=== PATIENT | female | born 1950 | race African-American/Black ===

== ENCOUNTER 2024-04-17 18:24 | Inpatient (IN) | payer OTHER ==
[~2024-04-17] VITALS: Ht 157.5 cm; Wt 86.4 kg
--- NOTE | 2024-04-17 18:41 | ED.PDOC ---
Altered Mental Status HPI Comments A 74 year old female brought in by EMS presents to the ED with a chief complaint of ALOC onset 4 days. Per EMS, patient has been experiencing urinary symptoms including foul odor and low production for the past 4 days. EMS states patient is usually ANO x4 and is currently ANO x1. Patient is not able to describe her symptoms only states she is "not feeling well." She has a past medical history of HTN, HLD and Afib. No other symptoms or modifying factors present at this time. Time Seen by MD: 18:33 Reviewed Notes: Medications, Allergies Allergies: Coded Allergies: NO KNOWN ALLERGIES (Unverified , 04/17/24) Information Source: Emergency Med Personnel Mode of Arrival: EMS Severity: Moderate Timing: Days Duration: Since onset Prehospital treatment: Other (500 mL fluids ) Quality: Decreased Alertness, Change in Behavior, Confusion Recent: Urinary Symptoms History of: None Associated Signs and Symptoms: None Vital Signs Vital Signs Date Time Temp Pulse Resp B/P (MAP) Pulse Ox O2 Delivery O2 Flow Rate FiO2 04/17/24 22:44 128 04/17/24 22:30 98.1 17 138/78 (98) 96 98.1 04/17/24 22:30 Room Air* 0 21 Past Medical History PAST MEDICAL HISTORY: AFIB, High Lipids, HTN Surgical History (Other): Kidney and liver transplant [employer] History: Denies all [employer] Hx Family History Family History: Unknown Social History Smoker: Non-Smoker Alcohol: Denies ETOH Use Drugs: Denies Drug Use Lives In: Home EKG EKG : Pulse Rate (adult): 158 Comments Ectopic atrial tachycardia, unifocal 125 bpm. Long R-R with ventricular escape. Repol abnrm, prob ischemia, inferolateral lds Was a procedure done? Was a procedure done?: No Differential Diagnosis (ALOC) Differential Diagnosis: Other X-Ray, Labs, Meds, VS Vital Signs Date Time Temp Pulse Resp B/P (MAP) Pulse Ox O2 Delivery O2 Flow Rate FiO2 04/17/24 22:44 128 04/17/24 22:30 98.1 128 17 138/78 (98) 96 98.1 04/17/24 22:30 128 18 95 Room Air* 0 21 04/17/24 21:33 125 04/17/24 19:12 99.6 124 20 129/80 (96) 98 04/17/24 18:46 158 12/4/24 18:40 125 Lab Test 04/17/24 19:15 Range/Units White Blood Count 6.9 4.4-10.8 10^3/uL Red Blood Count 3.94 L 4.0-5.20 10^6/uL Hemoglobin 10.4 L 12.2-16.2 g/dL Hematocrit 32.8 L 36.0-46.0 % Mean Corpuscular Volume 83.1 80.0-100.0 fL Mean Corpuscular Hemoglobin 26.4 L 28.0-32.0 pg Mean Corpuscular Hemoglobin Concent 31.7 L 32.0-36.0 g/dL Red Cell Distribution Width 20.2 H 11.8-14.3 % Platelet Count 132 L 140-450 10^3/uL Mean Platelet Volume 8.1 6.9-10.8 fL Neutrophils (%) (Auto) 85.3 H 37.0-80.0 % Lymphocytes (%) (Auto) 8.7 L 10.0-50.0 % Monocytes (%) (Auto) 5.1 0.0-12.0 % Eosinophils (%) (Auto) 0.8 0.0-7.0 % Basophils (%) (Auto) 0.1 0.0-2.0 % Neutrophils # (Auto) 5.9 1.6-8.6 10 ^3/uL Lymphocytes # (Auto) 0.6 0.4-5.4 10 ^3/uL Monocytes # (Auto) 0.4 0-1.3 10 ^3/uL Eosinophils # (Auto) 0.1 0-0.8 10 ^3/uL Basophils # (Auto) 0 0-0.2 10 ^3/uL Nucleated Red Blood Cells 0.0 % Sodium Level 139 136-145 mmol/L Potassium Level 5.0 3.5-5.1 mmol/L Chloride Level 105 98-107 mmol/L Carbon Dioxide Level 24 20-31 mmol/L Anion Gap 10 5-15 Blood Urea Nitrogen 49 H 9-23 mg/dL Creatinine 3.62 H 0.550-1.02 mg/dL Glomerular Filtration Rate Calc 13 >90 mL/min BUN/Creatinine Ratio 13.5 10.0-20.0 Serum Glucose 83 74-106 mg/dL Lactic Acid Level 1.2 0.4-2.0 mmol/L Calcium Level 10.2 8.7-10.4 mg/dL Total Bilirubin 0.9 0.2-1.0 mg/dL Aspartate Amino Transferase (AST) 14 13-40 U/L Alanine Aminotransferase (ALT) < 9 7-40 U/L Alkaline Phosphatase 154 H 46-116 U/L Ammonia < 10 L 11-32 umol/L B-Type Natriuretic Peptide 514.86 0-100 pg/mL Total Protein 5.6 L 5.7-8.2 g/dL Albumin 3.6 3.2-4.8 g/dL Thyroid Stimulating Hormone (TSH) 2.58 0.55-4.78 uIU/mL Current Medications Medications (Trade) Dose Ordered Sig/Edmundo Route Start Time Stop Time Status Last Admin Sodium Chloride 1,000 ml @ 125 mls/hr Q8H ONCE IV 04/17/24 18:45 04/18/24 00:25 DC 04/17/24 22:36 Diltiazem HCl (Cardizem Injection) 5 mg ONCE ONCE IV 04/17/24 21:45 04/17/24 22:33 DC 04/18/24 00:17 [place] [id number] Ph: [phone] DIAGNOSTIC IMAGING Diagnostic Imaging Report : [id number] Signed PATIENT: ALEJANDRINA DAVENPORTBRYANCCT: [id number] UNIT: [id number] : 1950 LOC: ER ROOM / BED: / AGE / SEX: 74 / F ADM STATUS: REG ER SERVICE 1901 ORDERING PHYSICIAN: JOE LARIOS MD PROCEDURE(s): HWOCT - HEAD WITHOUT CONTRAST REASON: ams ORDER NUMBER(s): [id number], ACCESSION NUMBER(s): [id number] CLINICAL HISTORY: ams TECHNIQUE: Helical imaging carried out from skull base to vertex without intravenous contrast. This exam was performed according to our departmental dose optimization program. Up-to-date CT equipment and radiation dose reduction techniques are utilized as appropriate. CTDIVol: [CTDIvol] mGy DLP: 903.59 mGy-cm WID: COMPARISON: None FINDINGS: Generalized cerebral volume loss with concordant prominence of the subarachnoid spaces and ventricles. Mild patchy low-attenuation throughout the cerebral white matter consistent with nonspecific white matter disease there is moderate encephalomalacia in the left MCA territory involving the left frontal, parietal, and superior temporal lobes There is no midline shift or mass effect. The shields white matter interfaces are otherwise maintained. The basal cisterns are patent. There is no evidence of acute intracranial hemorrhage or extra-axial fluid collection. Bilateral mastoid air cell effusions. Visualized paranasal sinuses are well aerated. IMPRESSION: 1. No acute intracranial abnormality. 2. Generalized cerebral volume loss and mild chronic microvascular ischemic change. 3. Moderate encephalomalacia in the left MCA territory involving the left frontal, parietal, and superior temporal lobes ATED BY: TRACY ALBA MD DICTATED DATE/TIME: 04/17/242020 SIGNED BY: TRACY ALBA MD SIGNED DATE/TIME: 04/17/242020 CC: Time of 1ST Reevaluation: 19:03 Reevaluation 1ST: Unchanged Patient Education/Counseling: Diagnosis, Treatment, Prognosis Family Education/Counseling: Diagnosis, Treatment, Prognosis Additional Information HI Data Complexity Ordered Test: EKG, LAB, CT, PHA reviewed results: Ammonia, CBC, CMP, Procalcitonin, LA W/ REFLEX, UA, Thyroid stimilating hormone, BNP Independent historian: EMS Interpreted Results: CT, EKG Discuss tx/results: patient, medical personnel Departure 1 Departure Time of Disposition: 22:25 Impression: Primary Impression: VIJAY (acute kidney injury) Additional Impressions: Atrial fibrillation with RVR Altered mental status Disposition: ADMITTED INPATIENT Condition: Stable Comments Multiple acute and chronic illness that poses a threat to life or bodily function: Altered mental status, Atrial fibrillation, urinary tract infection, pharmacy, history of constipation, hyperlipidemia, hypertension Extensive evaluation was performed to identify or rule out CVA, urinary tract infection, sepsis, thyroid storm, thyroid disease, hepatitis, hyperbilirubinemia/jaundice, hyperammonemia, shock, other Amount and/or Complexity of Data to be Reviewed/Analyzed Tests reviewed: Labs, imaging, EKG Documents reviewed: Home medication list, Independent historian: EMS, patient's niece at bedside Independent interpretation of tests: EKG, CT head- no acute intracranial hemorrhage Decision regarding hospitalization or escalation of hospital level of care Critical Care Note Critical Care Time?: No Stability Stability form required: No I personally scribed for JOE LARIOS MD ([email or web address]) on 04/17/24 at 18:41. Electronically submitted by Ananya Marie ([email or web address]). I personally scribed for JOE LARIOS MD ([email or web address]) on 04/17/24 at 18:46. Electronically submitted by Ananya Marie ([email or web address]). I personally scribed for JOE LARIOS MD ([email or web address]) on 04/17/24 at 20:28. Electronically submitted by Ananya Marie ([email or web address]). I personally scribed for JOE LARIOS MD ([email or web address]) on 04/17/24 at 20:37. Electronically submitted by Ananya Marie ([email or web address]). JOE LARIOS MD Apr 17, 2024 18:41
--- NOTE | 2024-04-17 18:59 | ECG ---
[facility] Test Date: 2024-04-17 Test Time: 18:38:05 Pat Name: NÉSTOR DAVENPORT Department: ED Room: 0295T Gender: F Utility Teller: DAVEY : 1950 Requested By: JOE LARIOS Order Number: [id number] Reading MD: Joseph Parisi Measurements Intervals [place] Rate: 125 P: -90 [place]: 158 QRS: 57 QRSD: 82 T: 225 QT: 189 QTc: 273 Interpretive Statements Ectopic atrial tachycardia, unifocal Long R-R with ventricular escape Repol abnrm, prob ischemia, inferolateral lds Electronically Signed On 04-18-2024 12:05:34 PST by Joseph Parisi Please click the below link to view image of tracing.
[2024-04-17 19:33] LABS: Basophils # (auto) 0 10 ^3/uL (0-0.2); Basophils % (auto) 0.1 % (0.0-2.0); Eosinophils # (auto) 0.1 10 ^3/uL (0-0.8); Eosinophils % (auto) 0.8 % (0.0-7.0); Hematocrit 32.8 % (36.0-46.0); Hemoglobin 10.4 g/dL (12.2-16.2); Lymphocytes # (auto) 0.6 10 ^3/uL (0.4-5.4); Lymphocytes % (auto) 8.7 % (10.0-50.0); Mean Corpuscular Hemoglobin 26.4 pg (28.0-32.0); Mean Corpuscular Hgb Conc. 31.7 g/dL (32.0-36.0); Mean Corpuscular Volume 83.1 fL (80.0-100.0); Monocytes # (auto) 0.4 10 ^3/uL (0-1.3); Monocytes % (auto) 5.1 % (0.0-12.0); Neutrophils # (auto) 5.9 10 ^3/uL (1.6-8.6); Neutrophils % (auto) 85.3 % (37.0-80.0); Platelet Count (auto) 132 10^3/uL (140-450); Red Blood Cells 3.94 10^6/uL (4.0-5.20); Red Cell Distribution Width 20.2 % (11.8-14.3); White Blood Cell 6.9 10^3/uL (4.4-10.8)
[2024-04-17 19:52] LABS: Albumin 3.6 g/dL (3.2-4.8); Anion Gap 10 (5-15); Aspartate Aminotransferase 14 U/L (13-40); BUN/Creatinine Ratio 13.5 (10.0-20.0); Bilirubin, Total 0.9 mg/dL (0.2-1.0); Calcium 10.2 mg/dL (8.7-10.4); Carbon Dioxide 24 mmol/L (20-31); Chloride 105 mmol/L (98-107); Glucose 83 mg/dL (74-106); Sodium 139 mmol/L (136-145)
[2024-04-17 20:03] LABS: Alanine Aminotransferase < 9 U/L (7-40); Alkaline Phosphatase 154 U/L (46-116); Blood Urea Nitrogen 49 mg/dL (9-23); Total Protein 5.6 g/dL (5.7-8.2)
--- NOTE | 2024-04-17 20:24 | DVH ---
CLINICAL HISTORY: ams TECHNIQUE: Helical imaging carried out from skull base to vertex without intravenous contrast. This e xam was performed according to our departmental dose optimization program. Up-to-date CT equipment an d radiation dose reduction techniques are utilized as appropriate. CTDIVol: [CTDIvol] mGy DLP: 903.59 mGy-cm WID: COMPARISON: None FINDINGS: Generalized cerebral volume loss with concordant prominence of the subarachnoid spaces and ventricles . Mild patchy low-attenuation throughout the cerebral white matter consistent with nonspecific white matter disease there is moderate encephalomalacia in the left MCA territory involving the left fronta l, parietal, and superior temporal lobes There is no midline shift or mass effect. The shields white matter interfaces are otherwise maintained. The basal cisterns are patent. There is no evidence of acute intracranial hemorrhage or extra-axial fluid collection. Bilateral mastoid air cell effusions. Visualized paranasal sinuses are well aerated . IMPRESSION: 1. No acute intracranial abnormality. 2. Generalized cerebral volume loss and mild chronic microvascular ischemic change. 3. Moderate encephalomalacia in the left MCA territory involving the left frontal, parietal, and supe rior temporal lobes
[2024-04-17 22:30] VITALS: PULSE 128; RESP 18; O2SAT 95
[2024-04-17] MEDS: SODIUM CHLORIDE 0.9% 1,000 ML IV ONE ×2 (22:30→22:36)
--- NOTE | 2024-04-17 22:58 | DVH ---
EXAM: CT THORACIC SPINE WO CONTRAS INDICATION: Fall, back pain COMPARISON: None TECHNIQUE: Multiple axial CT images of the thoracic spine were obtained using bone algorithm. Axial and coronal reformatting was done. Bone and soft tissue windows were reviewed. Radiation Dose Information: CT Dose: CTDI volume is 36 mGy. Dose-length product is 1456 mGy*cm FINDINGS: Lytic appearing lesions are seen within the T4, T5, T8, T9, and T10 vertebral bodies. No CT evidence of acute fracture or traumatic mal-alignment. The visualized paraspinal soft tissues a re grossly unremarkable. Probable chronic nondisplaced fracture deformity of the right posterior T11 vertebral body. The disc spaces are relatively preserved. There is multilevel degenerative change of the spine, with disc space narrowing, subchondral sclerosis, and marginal osteophyte formation. IMPRESSION: 1. No CT evidence of acute fracture or traumatic mal-alignment of the bony thoracic spine. 2. Lytic appearing lesions are seen within the T4, T5, T8, T9, and T10 vertebral bodies. Bony metast atic disease not excluded. Recommend thoracic spine MRI for further characterization. 3. Probable chronic nondisplaced fracture deformity of the right posterior T11 vertebral body. 4. Radiation optimization: All CT scans at this facility use at least one of these dose optimization techniques: automated exposure control mA and/or kV adjustment per patient size (includes targeted e xams where dose is matched to clinical indication) or iterative reconstruction.
--- NOTE | 2024-04-17 23:10 | DVH ---
EXAM: CT LS SPINE WO CONTRAST INDICATION: Fall, back pain COMPARISON: CT HEAD WITHOUT CONTRAST on DOS: 04/17/24 TECHNIQUE: Multiple axial CT images of the lumbar spine were obtained using bone algorithm. Axial an d coronal reformatting was done. Bone and soft tissue windows were reviewed. Radiation Dose Information: CT Dose: CTDI volume is 35.75 mGy. Dose-length product is 1455.78 mGy*cm FINDINGS: No CT evidence of traumatic mal-alignment. The visualized paraspinal soft tissues are grossly unrema rkable. Lytic lesion is seen in the L4 vertebral body where there is also a probable chronic fracture deformi ty. Prominent disc osteophyte complex at L3-L4 causing at least moderate central canal stenosis and at le ast mild bilateral neural foraminal narrowing. IMPRESSION: 1. Lytic lesion is seen in the L4 vertebral body where there is also a probable chronic fracture defo rmity. Recommend lumbar spine MRI for further characterization. 2. Prominent disc osteophyte complex at L3-L4 causing at least moderate central canal stenosis and at least mild bilateral neural foraminal narrowing. 3. Radiation optimization: All CT scans at this facility use at least one of these dose optimization techniques: automated exposure control mA and/or kV adjustment per patient size (includes targeted e xams where dose is matched to clinical indication) or iterative reconstruction.
[2024-04-17] MEDS ORDERED: MORPHINE SULFATE INJ 2 MG/ml SYRG IV PRN (23:15)
[2024-04-17] MEDS ORDERED: NITROGLYCERIN 0.4 MG SL TAB SL PRN (23:15)
[2024-04-17] MEDS ORDERED: ACETAMINOPHEN 325 MG TAB PO PRN (23:15)
--- NOTE | 2024-04-17 23:48 | DVH ---
CHEST RADIOGRAPH Indication: r/o chf Technique: Single frontal view of the chest was obtained COMPARISON: None FINDINGS: Lines and Tubes: None Lungs: Questionable mild interstitial pulmonary edema. Pleura: No effusion. No pneumothorax. Cardiomediastinal contours: Borderline cardiomegaly Bones: Unremarkable IMPRESSION: 1. Questionable mild interstitial pulmonary edema.
[2024-04-18] VITALS (7 sets, daily range): BP systolic 115–163; BP diastolic 66–93; PULSE 116–127; RESP 17–20; TEMP 97.9–98.5; O2SAT 96–98
[2024-04-18 00:16] LABS: INR 1.11 (0.9-1.15); Partial Thromboplastin Time 25.6 SEC (24.5-34.5); Prothrombin Time 11.7 sec (9.3-11.8)
[2024-04-18] MEDS: dilTIAZem 25 MG/5 ML VIAL IV ONE ×2 (00:17→04:23)
[2024-04-18] MEDS: LABETALOL HCL 20 MG/4 ML VL IV ONE (00:55)
[2024-04-18 02:06] LABS: Urine Bacteria FEW /hpf (None Seen); Urine Blood Negative /uL (Negative); Urine Clarity Clear (Clear); Urine Color Yellow (Yellow); Urine Protein, UAD TRACE (Negative); Urine Specific Gravity 1.015 (1.001-1.035); Urine Urobilinogen Normal (Negative); Urine WBC 1 /hpf (0 - 5)
--- NOTE | 2024-04-18 03:43 | ECG ---
[facility] Test Date: 2024-04-17 Test Time: 21:33:29 Pat Name: NÉSTOR DAVENPORT Department: ER Room: 0295T Gender: F Bag Loader: SYLVESTER : 1950 Requested By: JOE LARIOS Order Number: [id number] Reading MD: Joseph Parisi Measurements Intervals [place] Rate: 125 P: 263 [place]: 166 QRS: 65 QRSD: 98 T: 234 QT: 254 QTc: 367 Interpretive Statements Ectopic atrial tachycardia, unifocal Repol abnrm suggests ischemia, diffuse leads Minimal ST elevation, lateral leads Electronically Signed On 04-18-2024 12:05:38 PST by Joseph Parisi Please click the below link to view image of tracing.
[2024-04-18] MEDS ORDERED: LABETALOL HCL 20 MG/4 ML VL IV ONE (04:15)
--- NOTE | 2024-04-18 04:36 | DVHHP2 ---
History of Present Illness Reason for Visit: Generalized weakness History of Present Illness 74-year-old female presents for evaluation of generalized weakness. Patient was previously on hospice for bone cancer. Patient's family state they want the patient to be assessed by an oncologist and possibly treated so hospice was revoked. Patient has become progressively weaker over the past three days with decreased oral intake and more lethargic. She is primarily bed ridden. Currently she is lethargic and oriented to self. Patient does have a history of liver and kidney transplant. Past Medical History Dyslipidemia, hypertension, AFib, bone cancer Past Surgical History Kidney and liver transplant Family History Noncontributory Smoke: No ALCOHOL: none Drugs: None Lives: with Family Review of Systems Review of Systems Review of systems are currently negative otherwise addressed in HPI. Allergies: Coded Allergies: NO KNOWN ALLERGIES (Unverified , 04/17/24) Medications Current Medications Medications Dose Ordered Sig/Edmundo Route Start Time Stop Time Status Last Admin Dose Admin Nitroglycerin 0.4 mg Q5MINP PRN SL 04/17/24 23:15 Morphine Sulfate 2 mg Q30M PRN IV 04/17/24 23:15 Patient Own Medication 110 mg BID PO 04/18/24 10:00 UNV Nifedipine 30 mg DAILY PO 04/18/24 10:00 Tacrolimus 5 mg BID PO 04/18/24 10:00 Prednisone 5 mg DAILY PO 04/18/24 10:00 Atorvastatin Calcium 20 mg HS PO 04/18/24 22:00 Patient Own Medication 5 mg DAILY PO 04/18/24 10:00 UNV Ondansetron HCl 4 mg Q4HP PRN IV 04/17/24 23:15 Acetaminophen 650 mg Q6HP PRN PO 04/17/24 23:15 Exam Vital Signs Vital Signs Date Time Temp Pulse Resp B/P (MAP) Pulse Ox O2 Delivery O2 Flow Rate FiO2 04/18/24 02:33 125 14 131/87 (102) 95 04/17/24 22:30 98.1 98.1 04/17/24 22:30 Room Air* 0 21 Exam Gen: 74-year-old female in mild distress, morbidly obese Skin: Warm, dry, normal color and texture, no rash. HEENT: Normocephalic atraumatic, mucous membranes moist and pink. Neck: Cervical and supraclavicular nodes normal without enlargement, trachea is midline, thyroid gland is normal without masses. Pulmonary: Clear to auscultation and percussion bilaterally. Cardiac: Regular rate and rhythm. No murmur Abdomen: Soft, nontender, nondistended, bowel sounds present all 4 quadrants, no guarding, no rigidity, no organomegaly. Extremities: No cyanosis, clubbing, no edema Neuro: Cranial nerves II through XII grossly intact, normal affect and speech, no focal motor deficits. Labs/Xrays ORDERING PHYSICIAN: JOE LARIOS MD PROCEDURE(s): HWOCT - HEAD WITHOUT CONTRAST REASON: ams ORDER NUMBER(s): [id number], ACCESSION NUMBER(s): [id number] CLINICAL HISTORY: ams TECHNIQUE: Helical imaging carried out from skull base to vertex without intravenous contrast. This exam was performed according to our departmental dose optimization program. Up-to-date CT equipment and radiation dose reduction techniques are utilized as appropriate. CTDIVol: [CTDIvol] mGy DLP: 903.59 mGy-cm WID: COMPARISON: None FINDINGS: Generalized cerebral volume loss with concordant prominence of the subarachnoid spaces and ventricles. Mild patchy low-attenuation throughout the cerebral white matter consistent with nonspecific white matter disease there is moderate encephalomalacia in the left MCA territory involving the left frontal, parietal, and superior temporal lobes There is no midline shift or mass effect. The shields white matter interfaces are otherwise maintained. The basal cisterns are patent. There is no evidence of acute intracranial hemorrhage or extra-axial fluid collection. Bilateral mastoid air cell effusions. Visualized paranasal sinuses are well aerated. IMPRESSION: 1. No acute intracranial abnormality. 2. Generalized cerebral volume loss and mild chronic microvascular ischemic change. 3. Moderate encephalomalacia in the left MCA territory involving the left frontal, parietal, and superior temporal lobes RING PHYSICIAN: JOE LARIOS MD PROCEDURE(s): TS2CT - THORACIC SPINE WO CONTRAS REASON: Fall, back pain ORDER NUMBER(s): [id number], ACCESSION NUMBER(s): [id number] EXAM: CT THORACIC SPINE WO CONTRAS INDICATION: Fall, back pain COMPARISON: None TECHNIQUE: Multiple axial CT images of the thoracic spine were obtained using bone algorithm. Axial and coronal reformatting was done. Bone and soft tissue windows were reviewed. Radiation Dose Information: CT Dose: CTDI volume is 36 mGy. Dose-length product is 1456 mGy*cm FINDINGS: Lytic appearing lesions are seen within the T4, T5, T8, T9, and T10 vertebral bodies. No CT evidence of acute fracture or traumatic mal-alignment. The visualized paraspinal soft tissues are grossly unremarkable. Probable chronic nondisplaced fracture deformity of the right posterior T11 vertebral body. The disc spaces are relatively preserved. There is multilevel degenerative change of the spine, with disc space narrowing, subchondral sclerosis, and marginal osteophyte formation. IMPRESSION: 1. No CT evidence of acute fracture or traumatic mal-alignment of the bony thoracic spine. 2. Lytic appearing lesions are seen within the T4, T5, T8, T9, and T10 vertebral bodies. Bony metastatic disease not excluded. Recommend thoracic spine MRI for further characterization. 3. Probable chronic nondisplaced fracture deformity of the right posterior T11 vertebral body. 4. Radiation optimization: All CT scans at this facility use at least one of these dose optimization techniques: automated exposure control mA and/or kV adj ustment per patient size (includes targeted exams where dose is matched to clinical indication) or iterative reconstruction. RING PHYSICIAN: JOE LARIOS MD PROCEDURE(s): CXR1 - CHEST XRAY 1 VIEW REASON: r/o chf ORDER NUMBER(s): [id number], ACCESSION NUMBER(s): [id number] CHEST RADIOGRAPH Indication: r/o chf Technique: Single frontal view of the chest was obtained COMPARISON: None FINDINGS: Lines and Tubes: None Lungs: Questionable mild interstitial pulmonary edema. Pleura: No effusion. No pneumothorax. Cardiomediastinal contours: Borderline cardiomegaly Bones: Unremarkable IMPRESSION: 1. Questionable mild interstitial pulmonary edema. Labs Test 04/18/24 00:35 04/17/24 23:31 04/17/24 19:15 Range/Units Urine Color Yellow Yellow Urine Clarity Clear Clear Urine pH 5.0 5.0-9.0 Urine Specific [place] 1.015 1.001-1.035 Urine Protein Trace H Negative Urine Ketones Negative Negative Urine Blood Negative Negative /uL Urine Nitrite Negative Negative Urine Bilirubin Negative Negative Urine Urobilinogen Normal Negative mg/dL Urine Leukocyte Esterase Negative Negative /uL Urine RBC <1 0 - 4 /hpf Urine WBC 1 0 - 5 /hpf Urine Squamous Epithelial Cells Few <5 /hpf Urine Bacteria Few H None Seen /hpf Urine Glucose Normal Normal mg/dL Prothrombin Time 11.7 9.3-11.8 sec Prothrombin Time INR 1.11 0.9-1.15 Activated Partial Thromboplast Time 25.6 24.5-34.5 SEC Creatine Kinase 22 L 34-145 U/L White Blood Count 6.9 4.4-10.8 10^3/uL Red Blood Count 3.94 L 4.0-5.20 10^6/uL Hemoglobin 10.4 L 12.2-16.2 g/dL Hematocrit 32.8 L 36.0-46.0 % Mean Corpuscular Volume 83.1 80.0-100.0 fL Mean Corpuscular Hemoglobin 26.4 L 28.0-32.0 pg Mean Corpuscular Hemoglobin Concent 31.7 L 32.0-36.0 g/dL Red Cell Distribution Width 20.2 H 11.8-14.3 % Platelet Count 132 L 140-450 10^3/uL Mean Platelet Volume 8.1 6.9-10.8 fL Neutrophils (%) (Auto) 85.3 H 37.0-80.0 % Lymphocytes (%) (Auto) 8.7 L 10.0-50.0 % Monocytes (%) (Auto) 5.1 0.0-12.0 % Eosinophils (%) (Auto) 0.8 0.0-7.0 % Basophils (%) (Auto) 0.1 0.0-2.0 % Neutrophils # (Auto) 5.9 1.6-8.6 10 ^3/uL Lymphocytes # (Auto) 0.6 0.4-5.4 10 ^3/uL Monocytes # (Auto) 0.4 0-1.3 10 ^3/uL Eosinophils # (Auto) 0.1 0-0.8 10 ^3/uL Basophils # (Auto) 0 0-0.2 10 ^3/uL Nucleated Red Blood Cells 0.0 % Sodium Level 139 136-145 mmol/L Potassium Level 5.0 3.5-5.1 mmol/L Chloride Level 105 98-107 mmol/L Carbon Dioxide Level 24 20-31 mmol/L Anion Gap 10 5-15 Blood Urea Nitrogen 49 H 9-23 mg/dL Creatinine 3.62 H 0.550-1.02 mg/dL Glomerular Filtration Rate Calc 13 >90 mL/min BUN/Creatinine Ratio 13.5 10.0-20.0 Serum Glucose 83 74-106 mg/dL Lactic Acid Level 1.2 0.4-2.0 mmol/L Calcium Level 10.2 8.7-10.4 mg/dL Total Bilirubin 0.9 0.2-1.0 mg/dL Aspartate Amino Transferase (AST) 14 13-40 U/L Alanine Aminotransferase (ALT) < 9 7-40 U/L Alkaline Phosphatase 154 H 46-116 U/L Ammonia < 10 L 11-32 umol/L B-Type Natriuretic Peptide 514.86 0-100 pg/mL Total Protein 5.6 L 5.7-8.2 g/dL Albumin 3.6 3.2-4.8 g/dL Thyroid Stimulating Hormone (TSH) 2.58 0.55-4.78 uIU/mL Assessment/Plan Assessment/Plan Assessment Metabolic encephalopathy Acute renal failure Lung cancer Pancytopenia secondary to the above Status post liver/kidney transplant AFib with RVR Plan Admit the patient to telemetry to the hospitalist Nephrology consultation Oncology consult Cardiology consultation Resume home medications Continue treatment per orders. Plan discussed with: Other My Orders Orders - BRIGITTE CARLOS AGACNP Procedure Category Date Status Time Admit ADMIT 04/17/24 Transmitted 23:05 Nitroglycerin PHA 04/17/24 In Process Sublingual (Ntrostat 23:15 Morphine Sulfate PHA 04/17/24 In Process Injection 23:15 Stat Ekg For Chest STEPHANI 04/17/24 In Process Pain 23:05 Notify Of Changes STEPHANI 04/17/24 In Process From Base 23:05 [place] [employer] For STEPHANI 04/17/24 In Process 24 Hours 23:05 Emergency Dysrhythmia STEPHANI 04/17/24 In Process Protocol 23:05 Rhythm Strips Once STEPHANI 04/17/24 In Process Every Shift 23:05 Oxygen By Nasal RT 04/17/24 Transmitted Cannula 23:05 (Nf) Pradaxa PHA 04/18/24 Pending 10:00 Nifedipine Er PHA 04/18/24 In Process (Procardia Xl 10:00 Tacrolimus (Fk506) LAB 04/17/24 In Process 23:10 Tacrolimus (Prograf) PHA 04/18/24 In Process 10:00 Prednisone Tablet PHA 04/18/24 In Process 10:00 * Hematology/Oncology CONS 04/17/24 Transmitted Consult 23:10 *Dr. Radames Resendez CONS 04/17/24 Transmitted -[place] 23:10 Atorvastatin (Lipitor) PHA 04/18/24 In Process 22:00 (Nf) Bisoprolol PHA 04/18/24 Pending 10:00 Blood Culture KENDALL 04/17/24 In Process 23:10 Renal DIET 04/18/24 Transmitted Standard(2gna,3gk,Lopho) Breakfast Ondansetron Hcl PHA 04/17/24 In Process (Zofran) 23:15 Complete Blood Count LAB 04/18/24 Logged 04:00 Comprehensive LAB 04/18/24 Logged Metabolic Panel 04:00 Condition: Fair STEPHANI 04/17/24 In Process 23:10 Acetaminophen Tablet PHA 04/17/24 In Process (Tylenol Tablet) 23:15 Maintain Bed Rest STEPHANI 04/17/24 In Process 23:10 Sequential STEPHANI 04/17/24 In Process Compression Device Insert/Manage Urinary STEPHANI 04/18/24 In Process Catheter 00:54 Troponin-I Hs LAB 04/18/24 Logged 04:06 * Cardiology Consult CONS 04/18/24 Transmitted 04:06 Furosemide Tablet PHA 04/18/24 Logged (Lasix Tablet) 10:00 Date of Service: Apr 17, 2024 Billing Provider: BRIGITTE CARLOS Common Visit Codes: [id number] INP/OBS CARE (HIGH) BRIGITTE CARLOS Apr 18, 2024 04:36
[2024-04-18] MEDS ORDERED: CALC0.253 PO (06:42)
[2024-04-18] MEDS ORDERED: LOSA-535 PO (06:42)
[2024-04-18] MEDS ORDERED: PRED1PAK8 PO (06:42)
[2024-04-18] MEDS ORDERED: ONDA-180 PO (06:42)
[2024-04-18] MEDS ORDERED: LORA-1105 PO (06:42)
[2024-04-18] MEDS ORDERED: BISO5TAB44 PO (06:42)
[2024-04-18] MEDS ORDERED: MORP1SOL9 GT (06:42)
[2024-04-18] MEDS ORDERED: CINA30TA2 PO (06:42)
[2024-04-18] MEDS ORDERED: TACR5CAP3 PO (06:42)
[2024-04-18] MEDS ORDERED: [UNRECOGNIZED DRUG - CODE] PO (06:42)
[2024-04-18] MEDS ORDERED: TRAZ-228 PO (06:42)
[2024-04-18] MEDS ORDERED: ATOR10TA52 PO (06:42)
[2024-04-18] MEDS: cefTRIAXone 1GM/50ML D5W 50 ML IV SCH (06:43)
[2024-04-18 06:53] LABS: Basophils # (auto) 0 10 ^3/uL (0-0.2); Basophils % (auto) 0.4 % (0.0-2.0); Eosinophils # (auto) 0.1 10 ^3/uL (0-0.8); Eosinophils % (auto) 0.8 % (0.0-7.0); Hematocrit 34.4 % (36.0-46.0); Hemoglobin 11.3 g/dL (12.2-16.2); Lymphocytes % (auto) 11.1 % (10.0-50.0); Mean Corpuscular Hemoglobin 27.8 pg (28.0-32.0); Mean Corpuscular Hgb Conc. 32.9 g/dL (32.0-36.0); Mean Corpuscular Volume 84.6 fL (80.0-100.0); Monocytes # (auto) 0.6 10 ^3/uL (0-1.3); Monocytes % (auto) 6.8 % (0.0-12.0); Neutrophils # (auto) 7.1 10 ^3/uL (1.6-8.6); Neutrophils % (auto) 80.9 % (37.0-80.0); Platelet Count (auto) 137 10^3/uL (140-450); Red Blood Cells 4.07 10^6/uL (4.0-5.20); Red Cell Distribution Width 19.8 % (11.8-14.3); White Blood Cell 8.8 10^3/uL (4.4-10.8)
[2024-04-18 08:15] LABS: Magnesium 1.7 mg/dL (1.6-2.6)
[2024-04-18 08:16] LABS: Albumin 3.6 g/dL (3.2-4.8); Anion Gap 11 (5-15); Aspartate Aminotransferase 14 U/L (13-40); BUN/Creatinine Ratio 10.9 (10.0-20.0); Bilirubin, Total 0.9 mg/dL (0.2-1.0); Carbon Dioxide 21 mmol/L (20-31); Chloride 106 mmol/L (98-107); Phosphorus 4.2 mg/dL (2.4-5.1); Potassium 4.9 mmol/L (3.5-5.1); Sodium 138 mmol/L (136-145); Total Protein 6.2 g/dL (5.7-8.2)
[2024-04-18 08:17] LABS: Alanine Aminotransferase < 9 U/L (7-40); Alkaline Phosphatase 160 U/L (46-116); Blood Urea Nitrogen 41 mg/dL (9-23); Calcium 10.7 mg/dL (8.7-10.4); Glucose 67 mg/dL (74-106)
--- NOTE | 2024-04-18 08:45 | DVH ---
RENAL ULTRASOUND CLINICAL HISTORY: Kidney failure TECHNIQUE: Multiple ultrasound images of the kidneys and bladder were obtained. COMPARISON: None FINDINGS: The left kidney is partially obscured by bowel gas. The right kidney measures 10.5 cm in length. The left kidney grossly measures 10.7 cm. There is mild right renal pelviectasis. There is no obvious nephrolithiasis. There is nonspecific cortical thinning in the left kidney. The bladder is poorly filled. There is a 9 mm echogenic nodular structure in the bladder . IMPRESSION: 1. Mild right renal pelviectasis. There is no obvious nephrolithiasis. 2. Nonspecific cortical thinning in the left kidney. 3. Poorly filled bladder demonstrates a 9 mm echogenic nodular structure. This may represent a bladde r calculus or small bladder lesion. Correlation with cystoscopy is recommended. HS:Y
--- NOTE | 2024-04-18 09:09 | DVHINCON2 ---
Date of service: Apr 18, 2024 Referring Physician Jluis Mendez Reason for Consultation History of metastatic breast cancer History of Present Illness 74 years old black female who is knees is by her bedside and patient's sister is on the phone The patient has a history of hypertension, hyperlipidemia, renal and kidney transplant in 2016 for damage to these organs probably by some drugs according to the family. She had the transplanted [facility]. She used to drink heavy and quit a year back. She has been on hospice and now she revoked the hospice and wishes to be evaluated for the. She gives a history of left modified radical mastectomy a year back at [facility]. No other adjuvant treatment mentioned. 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 She says she had one shot of radiation therapy in February 02, 2024 at [facility] with some relief in the pain. But she still has significant pain in the mid and low back and right leg pain and is taking Dilaudid 8 mg PO q.4 hours p.r.n. for the pain MS elix as needed and fentanyl patch. Her pain in the right leg is significant. She is admitted with altered level of consciousness, weakness tremors lethargy and right leg pain CT of the brain showed no acute intracranial abnormality. Generalized cerebral volume loss and mild chronic microvascular ischemic change. Moderate S encephalomalacia in the left MCA territory involving the left frontal, parietal and the superior temporal lobes CT of the thoracic spine in the lumbar spine showed lytic appearing lesions at T4, T5, T8, T9 and T10 vertebral bodies. Probable chronic non nondisplaced fracture deformity of the right posterior T11 vertebral body Lytic lesion in the L4 vertebral body and also there is a probable chronic fracture deformity BUN 41 creatinine 3.7 GFR 12 calcium 10.7 total bili 0.9 albumin 3.6 total protein 6.2 TSH 2.58 normal liver functions White count 8.8 hemoglobin 11.3 platelets 137 PT INR 1.1 PTT 25.6 Urinalysis showed few bacteria Past Medical History Hypertension Hyperlipidemia Renal and liver transplant in 2016 and takes calcitriol and tacrolimus and prednisone 5 mg a day History of AFib Family History: Patient reports no known family medical history. Family History Sister has breast cancer Mother had some cancer father had lung cancer Grandfather had prostate cancer Social History Patient has been a heavy alcohol drinker and quit a year back No drugs Used to smoke in her younger days Allergies: Coded Allergies: NO KNOWN ALLERGIES (Unverified , 04/17/24) Home Meds Reported Medications Cinacalcet Hydrochloride (Sensipar) 30 Mg Tab, 50 MG PO, TAB 04/18/24 Tacrolimus (Tacrolimus) 5 Mg Cap, 5 MG PO, CAP 04/18/24 Bisoprolol Fumarate (Bisoprolol Fumarate) 5 Mg Tab, 1 TAB PO DAILY, #30 TAB 5 Refills 04/18/24 Losartan Potassium (Losartan Potassium) 100 Mg Tab, 1 TAB PO DAILY, #30 TAB 5 Refills 04/18/24 Prednisone (Prednisone) 5 Mg [place], 5 MG PO, PACK 04/18/24 Calcitriol (Rocaltrol) 0.25 Mcg Cap, 1 CAP PO DAILY, #30 CAP 5 Refills 04/18/24 Atorvastatin Calcium (ATORVASTATIN CALCIUM) 10 Mg Tab, 1 TAB PO DAILY, #30 TAB 5 Refills 04/18/24 Hydromorphone HCl (Hydromorphone HCl ER) 8 Mg Tab, 8 MG PO, TAB 04/18/24 Trazodone Hcl (Trazodone Hcl) 100 Mg Tab, 50 MG PO, TAB 04/18/24 Lorazepam (Lorazepam) 2 Mg Tab, 1 TAB PO TID, #90 TAB 04/18/24 Ondansetron HCl (Ondansetron Hydrochloride) 8 Mg Tab, 8 MG PO, TAB 04/18/24 Morphine Sulfate (Morphine Sulfate) 100 Mg/5 Ml Cee, 20 MG GT, ML 04/18/24 Current Medications Current Medications Medications (Trade) Dose Ordered Sig/Edmundo Route PRN Reason Start Time Stop Time Status Last Admin Nitroglycerin (Ntrostat Sublingual) 0.4 mg Q5MINP PRN SL FOR CHEST PAIN 04/17/24 23:15 Morphine Sulfate 2 mg Q30M PRN IV FOR CHEST PAIN 04/17/24 23:15 Patient Own Medication 110 mg BID PO 04/18/24 10:00 UNV Nifedipine (Procardia Xl (Time-Release)) 30 mg DAILY PO 04/18/24 10:00 Tacrolimus (Prograf) 5 mg BID PO 04/18/24 10:00 Prednisone 5 mg DAILY PO 04/18/24 10:00 Atorvastatin Calcium (Lipitor) 20 mg HS PO 04/18/24 22:00 Patient Own Medication 5 mg DAILY PO 04/18/24 10:00 UNV Ondansetron HCl (Zofran) 4 mg Q4HP PRN IV NAUSEA / VOMITING 04/17/24 23:15 Acetaminophen (Tylenol Tablet) 650 mg Q6HP PRN PO PAIN SCALE 1-3 OR TEMP>100.4 04/17/24 23:15 Furosemide (Lasix Tablet) 40 mg DAILY PO 04/18/24 10:00 Ceftriaxone Sodium 50 ml @ 100 mls/hr DAILY@09 IV 04/18/24 06:00 04/18/24 06:43 Vital Signs Vital Signs Date Time Temp Pulse Resp B/P (MAP) Pulse Ox O2 Delivery O2 Flow Rate FiO2 04/18/24 05:56 116 18 96 Room Air* 0 21 04/18/24 04:30 124/79 (94) 04/17/24 22:30 98.1 98.1 Physical Exam Moderately built and nourished, in no acute distress, alert and oriented. Somewhat lethargic No jaundice Head and neck: Unremarkable for any masses or neck nodes. No conjunctival or mucosal hemorrhage Lungs: Clear Cardiovascular: S1-S2 heard well Abdomen: No organomegaly, tenderness or ascites. Bowel sounds are present. Extremities: No clubbing edema cyanosis or calf tenderness. Skin: Unremarkable for petechia purpura ecchymosis Lymphadenopathy: None Neurological exam: No focal deficit Left mastectomy healed scar Right breast: Unremarkable for masses tenderness discharge Axillae: Unremarkable She is sensitive to touch on the right thigh right knee in the right calf area with no significant swelling Labs/Diagnostic Data Labs Test 04/18/24 07:42 04/18/24 05:10 04/18/24 00:35 04/17/24 23:31 Range/Units White Blood Count 8.8 # 4.4-10.8 10^3/uL Red Blood Count 4.07 4.0-5.20 10^6/uL Hemoglobin 11.3 L 12.2-16.2 g/dL Hematocrit 34.4 L 36.0-46.0 % Mean Corpuscular Volume 84.6 80.0-100.0 fL Mean Corpuscular Hemoglobin 27.8 L 28.0-32.0 pg Mean Corpuscular Hemoglobin Concent 32.9 32.0-36.0 g/dL Red Cell Distribution Width 19.8 H 11.8-14.3 % Platelet Count 137 L 140-450 10^3/uL Mean Platelet Volume 8.2 6.9-10.8 fL Neutrophils (%) (Auto) 80.9 H 37.0-80.0 % Lymphocytes (%) (Auto) 11.1 10.0-50.0 % Monocytes (%) (Auto) 6.8 0.0-12.0 % Eosinophils (%) (Auto) 0.8 0.0-7.0 % Basophils (%) (Auto) 0.4 0.0-2.0 % Neutrophils # (Auto) 7.1 1.6-8.6 10 ^3/uL Lymphocytes # (Auto) 1.0 0.4-5.4 10 ^3/uL Monocytes # (Auto) 0.6 0-1.3 10 ^3/uL Eosinophils # (Auto) 0.1 0-0.8 10 ^3/uL Basophils # (Auto) 0 0-0.2 10 ^3/uL Nucleated Red Blood Cells 0.0 % Sodium Level 138 136-145 mmol/L Potassium Level 4.9 3.5-5.1 mmol/L Chloride Level 106 98-107 mmol/L Carbon Dioxide Level 21 20-31 mmol/L Anion Gap 11 5-15 Blood Urea Nitrogen 41 H 9-23 mg/dL Creatinine 3.77 H 0.550-1.02 mg/dL Glomerular Filtration Rate Calc 12 >90 mL/min BUN/Creatinine Ratio 10.9 10.0-20.0 Serum Glucose 67 L 74-106 mg/dL Hemoglobin A1c 5.6 <5.7 % A1C Calcium Level 10.7 H 8.7-10.4 mg/dL Phosphorus Level 4.2 2.4-5.1 mg/dL Magnesium Level 1.7 1.6-2.6 mg/dL Total Bilirubin 0.9 0.2-1.0 mg/dL Aspartate Amino Transferase (AST) 14 13-40 U/L Alanine Aminotransferase (ALT) < 9 7-40 U/L Alkaline Phosphatase 160 H 46-116 U/L Troponin I High Sensitivity 14 </=34 ng/L Total Protein 6.2 5.7-8.2 g/dL Albumin 3.6 3.2-4.8 g/dL Urine Color Yellow Yellow Urine Clarity Clear Clear Urine pH 5.0 5.0-9.0 Urine Specific [place] 1.015 1.001-1.035 Urine Protein Trace H Negative Urine Ketones Negative Negative Urine Blood Negative Negative /uL Urine Nitrite Negative Negative Urine Bilirubin Negative Negative Urine Urobilinogen Normal Negative mg/dL Urine Leukocyte Esterase Negative Negative /uL Urine RBC <1 0 - 4 /hpf Urine WBC 1 0 - 5 /hpf Urine Squamous Epithelial Cells Few <5 /hpf Urine Bacteria Few H None Seen /hpf Urine Glucose Normal Normal mg/dL Prothrombin Time 11.7 9.3-11.8 sec Prothrombin Time INR 1.11 0.9-1.15 Activated Partial Thromboplast Time 25.6 24.5-34.5 SEC Creatine Kinase 22 L 34-145 U/L Test 04/17/24 19:15 Range/Units Lactic Acid Level 1.2 0.4-2.0 mmol/L Ammonia < 10 L 11-32 umol/L B-Type Natriuretic Peptide 514.86 0-100 pg/mL Thyroid Stimulating Hormone (TSH) 2.58 0.55-4.78 uIU/mL Assessment 1. History of left modified radical mastectomy in 2022 at [facility] without any adjuvant treatment. 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 History of kidney and liver transplant in 2016 and takes calcitriol, tacrolimus and prednisone 3. Hypertension 4. Hyperlipidemia 5. Atrial fibrillation history 6. Renal insufficiency Plan/Recommendation Hydrate the patient Bone scan CT of the chest abdomen pelvis without contrast Right lower extremity venous Doppler Check CA 27-29 Get her records from [facility] After the above evaluation the patient could follow up with me as an outpatient Plan discussed with: Patient, Other (sister, niece) MAHAMED JOSEPH MD Apr 18, 2024 09:09
--- NOTE | 2024-04-18 10:10 | DVHPNRES ---
Progress Note Date Seen: Apr 18, 2024 Resident Creating Document: ANUM CARABALLO RESIDENT Medical Necessity Reason Pt with a Central, PICC or Fol: No Subjective Review of Systems NÉSTOR DAVENPORT is a 74-year-old female with a PMH of HTN, HLD, AFib, breast cancer status post resection, bone cancer, renal and liver transplant presented to the ED accompanied by niece with the chief complaints of generalized weakness, confused and dehydration for past couple of weeks. currently her niece is taking care of her, she mentioned, patient diagnosed with the breast cancer last year, resected right total mastectomy, not aware what type of cancer she had And the January she was diagnosed with bone cancer, and she is on hospice due to insurance issues but no she went to get treated for the cancer, revoked the hospice. For past couple of weeks patient has been dehydrated, weakness, spine, right leg pain and weakness, tremors, lethargy along with continuous nauseous which prompted her to visit ED. on my assessment she denies fever, chest pain, diarrhea, diaphoresis, abdominal pain and other acute associated symptoms. Patient is bed-bound since January. PMH: HTN, HLD, AFib, breast cancer status post resection, bone cancer, renal and liver transplant PSH:breast cancer status post resection 2022, renal and liver transplant in 2014 Family history: Prostate, lung cancer in father, unspecified cancer in mother, breast cancer and myeloma in sister Social history: Lives with family. Denies smoking, alcohol and other drug abuse Allergies: APARNA inhibitors and Tylenol Patient seen and examined at the bedside. Patient is very weak, lethargic , mildly confused but able to answer questions. patient complaining of right leg pain, ordered lower extremity venous ultrasound to rule out DVT. Due to worsening of kidney functions ordered kidney ultrasound showed mild right renal pelviectasis and nonspecific cortical thinning left kidney. Consulted Nephrology for further evaluation. CT thoracic spine and lumbar spine showed lytic appearing lesions in T4,T5, T8, T9 and T10 , L4 vertebral bodies. Bony metastatic disease not excluded. Chronic nondisplaced fracture deformity of right posterior T11 vertebral body, lytic lesion. Dr. Rosenberg evaluated the patient advised to order bone scan, CT chest abdomen pelvis and brain MRI without contrast. Objective vital signs Vital Sign Date Time Temp Pulse Resp B/P (MAP) Pulse Ox O2 Delivery O2 Flow Rate FiO2 04/18/24 09:32 98.3 18 134/73 (93) 97 98.3 04/18/24 05:56 116 Room Air* 0 21 medications Current Medications Medications Dose Ordered Sig/Edmundo Route Start Time Stop Time Status Last Admin Dose Admin Nitroglycerin 0.4 mg Q5MINP PRN SL 04/17/24 23:15 Morphine Sulfate 2 mg Q30M PRN IV 04/17/24 23:15 Patient Own Medication 110 mg BID PO 04/18/24 10:00 Nifedipine 30 mg DAILY PO 04/18/24 10:00 Tacrolimus 5 mg BID PO 04/18/24 10:00 Prednisone 5 mg DAILY PO 04/18/24 10:00 Atorvastatin Calcium 20 mg HS PO 04/18/24 22:00 Patient Own Medication 5 mg DAILY PO 04/18/24 10:00 Ondansetron HCl 4 mg Q4HP PRN IV 04/17/24 23:15 Acetaminophen 650 mg Q6HP PRN PO 04/17/24 23:15 Furosemide 40 mg DAILY PO 04/18/24 10:00 Ceftriaxone Sodium 50 ml @ 100 mls/hr DAILY@09 IV 04/18/24 06:00 04/18/24 06:43 100 MLS/HR Examination Pt is lying on bed ( Bed bound) General Appearance: mildly confused but, Oriented X3, Cooperative, HEENT: Atraumatic, Mucous membranes dry Respiratory: Clear to auscultation, Normal air movement, No added sounds Cardiovascular: Regular rate, Normal S1, Normal S2, No murmurs Abdominal: Active bowel sounds, Soft, no distention, no tenderness Extremities: right lower extremity tenderness but no edema Skin: No Significant rash, except past surgical scars Neuro: limited exam due to patient status Normal speech, sensorimotor deficits none Psych/Mental Status: Mental status NL, Mood NL Nurse was there as sharperone during examination laboratory and microbiology Laboratory Tests 04/18/24 05:10 Test 04/18/24 05:10 Range/Units Serum Glucose 67 L 74-106 mg/dL Labs and/or images reviewed: Labs reviewed by me, Image(s) reviewed by me Problem List/Assessment/Plan Problem List/Assessment/Plan # acute metabolic or toxic encephalopathy # dehydration # acute renal failure likely due to VMN vs CKD # History of kidney and liver transplant in 2016 and takes calcitriol, tacrolimus and prednisone - CT of the brain without contrast showed chronic changes with encephalomalacia - currently hydrating - kidney ultrasound showed mild right renal pelviectasis and nonspecific cortical thinning left kidney - consulted nephrology for further evaluation - currently on tacrolimus and prednisone # History of left modified radical mastectomy in 2022 at [facility] without any adjuvant treatment # Bone cancer lytic appearing lesions in T4,T5, T8, T9 and T10 , L4 - CT thoracic spine and lumbar spine showed lytic appearing lesions in T4,T5, T8, T9 and T10 , L4 vertebral bodies. Bony metastatic disease not excluded. Chronic nondisplaced fracture deformity of right posterior T11 vertebral body, lytic lesion. - Dr. Rosenberg evaluated the patient advised to order bone scan, CT chest abdomen pelvis and brain MRI without contrast along with CA 27.29 - advised outpatient follow up after finishing all imaging & lab studies # Hypertension # Atrial fibrillation with secondary hypercoagulable state # ? acute versus chronic systolic versus diastolic CHF - currently on telemetry unit - patient is on bisoprolol, Pradaxa, Lasix 40 mg, nifedipine 30 mg - consulted cardiology for further evaluation - elevated BNP - ordered echocardiogram # right lower extremity DVT -continue pradaxa -evident on venous Doppler # Hyperlipidemia - currently on Lipitor Currently on pradaxa Protonix Renal diet Reconciled home meds Goals of care discussed with the patient for more than 27 minutes: Full code status Case management discussed with Dr. Merrill, patient and nurse Plan discussed with: Patient My Orders My Orders Orders - ANUM CARABALLO Procedure Category Date Status Time Brain Head Wo Contrast MRI 04/18/24 Logged 09:09 Bilat Lower Dvt US 04/18/24 Logged 09:09 Ca 27.29 LAB 04/18/24 Logged 09:09 Chst Ab Pel Wo Con-No CT 04/18/24 Logged Iv/Oral 09:17 Bone Whole Body NM 04/18/24 Logged 09:09 Date of Service: Apr 18, 2024 Billing Provider: RENEE MERRILL MD Common Visit Codes: [id number] INP/OBS CARE(HIGH) Secondary Visit Codes: [id number] CARE PLAN 30 MINUTES ANUM CARABALLO Apr 18, 2024 10:10 RENEE MERRILL MD Apr 20, 2024 20:32
--- NOTE | 2024-04-18 10:37 | DVH ---
BILATERAL LOWER EXTREMITY VENOUS DOPPLER CLINICAL HISTORY: pain Technique: Duplex Doppler evaluation of the deep venous systems of both lower extremities from the co mmon femoral veins to the popliteal veins including color Doppler and spectral/pulsed waveform analys is was performed. COMPARISON: None FINDINGS: There is occlusive thrombus seen extending from the proximal to the distal right superficial femoral vein. The right popliteal vein is not adequately visualized. There is an occluded right posterior tib ial vein. The left common femoral, superficial femoral, popliteal, posterior tibial and peroneal veins appear patent with normal augmentation, compressibility and color-flow. IMPRESSION: 1. Occlusive thrombus seen in the right superficial femoral and posterior tibial veins. 2. There is no sonographic evidence for DVT in the left lower extremity. HS:Y
--- NOTE | 2024-04-18 11:37 | DVH ---
PROCEDURE: MRI BRAIN HEAD WO CONTRAST INDICATION: r/o brain metastsis EXAM DATE: 04/18/2024 10:53 AM COMPARISON: CT LS SPINE WO CONTRAST on DOS: 04/17/24, CT HEAD WITHOUT CONTRAST on DOS: 04/17/24 TECHNIQUE: MRI of the brain without intravenous contrast. FINDINGS: Diffusion weighted images of the brain demonstrate no evidence of acute infarction. There is no evidence of acute intracranial hemorrhage, mass effect, midline shift, herniation or hydr ocephalus. The ventricles, sulci and cisterns appear age appropriate. There is a large area of cystic encephalomalacia in the left temporoparietal region with surrounding gliosis. There are no signal abnormalities on the susceptibility weighted sequences. The major vascular flow voids are present. Patchy opacification of the bilateral mastoid air cells [id number]. The surrounding sof t tissues and osseous structures are unremarkable. IMPRESSION: 1. 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 No definite evidence of metastati c disease although evaluation is limited without intravenous contrast. No evidence of acute ischemia. Bilateral mastoiditis. HS:Y
--- NOTE | 2024-04-18 12:07 | DVH ---
CT CHEST, ABDOMEN AND PELVIS WITHOUT CONTRAST CLINICAL HISTORY: WHOLE BODY SCAN FOR CA PER DR JOSEPH TECHNIQUE: Multiple contiguous axial images of the chest, abdomen and pelvis without intravenous cont rast. The images were reformatted degenerate coronal and sagittal reconstructions. All CT scans at this medical facility are performed using dose modulation techniques as appropriate t o a performed exam including the following:Automated exposure control was utilized; adjustment of the MA and/or KV according to patient size; and use of iterative reconstruction technique. Radiation Dose Information: CT Dose: CTDI volume is 23 mGy. Dose-length product is 1461 mGy*cm FINDINGS: The CT study is limited without intravenous contrast. Evaluation of the lungs is limited secondary to respiratory motion artifact. There are patchy subsoli d ground-glass opacities in the right lung, the largest in the posterior right lower lobe measuring 1 . 6 cm. There are scattered areas of pleural-parenchymal scarring bilaterally. There is no focal lung consolidation. There is no pleural effusion or pneumothorax. There is no evidence of a mediastinal mass or lymphadenopathy. There is no axillary lymphadenopath y. There are surgical clips in the left axilla. There are likely postmastectomy changes. There is a 1 0 mm right thyroid lobe nodule. The heart size within normal limits. There are calcified atherosclerotic changes in the coronary linda cami and thoracic aorta. There is no significant pericardial effusion. Gallbladder is surgically absent with likely postsurgical dilatation common bile duct. The right adrenal gland appears thickened with calcifications. The left adrenal gland appears within normal limits. The kidneys appear atrophic with thin cortices. There are bilateral renal cysts. There is no evidence of nephrolithiasis or hydronephrosis. There is a transplant kidney in the right lower quadrant abdom en without evidence of nephrolithiasis or hydronephrosis. The liver, pancreas, and spleen appear within normal limits. There is no gross evidence of mesenteric or retroperitoneal lymphadenopathy. There is no free fluid o r free air. The small and large bowel loops demonstrate normal caliber. There are calcified atherosclerotic changes in the abdominal aorta. The IVC appears within normal li mits. There is a Kessler catheter within the bladder. The uterus bulky with calcified fibroids.. There is n o evidence of a pelvic mass or lymphadenopathy. There is no free fluid collection. There are multiple lytic osseous lesions throughout the thoracolumbar spine, pelvis and in the bilate ral ribs. There is asymmetric compression deformity along the left side of the L4 vertebral body comp atible with pathologic fracture. There are other areas of cortical disruption, notably in the pelvis. IMPRESSION: 1. There are multiple lytic osseous lesions throughout the thoracolumbar spine, pelvis and in the angela ateral ribs. There is asymmetric compression deformity along the left side of the L4 vertebral body c ompatible with a pathologic fracture. There are other areas of cortical disruption, notably in the pe lvis. 2. Patchy subsolid and ground-glass opacities in the right lung, the largest in the posterior right l ower lobe measuring 1.6 cm. The etiology is nonspecific. Differential diagnosis includes infectious/ inflammatory changes. Metastatic disease is not entirely excluded. 3. There are no pathologic lymphadenopathy in the chest, abdomen and pelvis. 4. Nonspecific thickening and calcifications in the right adrenal gland. 5. Cholecystectomy with likely postsurgical dilated common bile duct. 6. Small atrophic [place] kidneys with multiple cysts. Transplant kidney in the right lower abdomen gr ossly appears within normal limits. 7. Fibroid uterus. HS:Y
[2024-04-18] MEDS: PRADAXA 110 MG PO SCH (12:54)
[2024-04-18] MEDS: predniSONE 5 MG TAB PO SCH (12:54)
[2024-04-18] MEDS: BISOPROLOL 5 MG TAB PO SCH (12:54)
[2024-04-18] MEDS: FUROSEMIDE 40 MG TAB PO SCH (12:55)
[2024-04-18] MEDS: NIFEdipine ER 30 MG TAB PO SCH (12:56)
[2024-04-18] MEDS: TACROLIMUS 1 MG CAP PO SCH (12:56)
[2024-04-18] MEDS: METOPROLOL TARTRATE 25 MG TAB PO ONE (14:56)
[2024-04-18] MEDS: ENOXAPARIN SOD 80 MG/0.8ML SYRINGE SC ONE (14:57)
--- NOTE | 2024-04-18 14:57 | DVHINCON2 ---
Date of service: Apr 18, 2024 Referring Physician Hospitalist Reason for Consultation Acute kidney injury in renal transplant History of Present Illness 74-year-old female past medical history of end-stage renal disease status post donor renal transplant in 2016 at [facility]. She also has a history of breast cancer with metastasis to the bone. She was previously on hospice She has a caregiver at bedside and medications given to her by her granddaughter. She was brought into the hospital by family due to worsening weakness. Nephrology was consulted due to elevated creatinine level of 3.6 which roddy to 3.7 today. I have no baseline for comparison. Per family over the phone patient was told several days ago in a [place] visit that her kidney function was good " Other notable medical history includes hypertension, hyperlipidemia, atrial fibrillation Past Surgical History Kidney transplant Allergies: Coded Allergies: APARNA Inhibitors (Verified Allergy, Unknown, 04/18/24) Acetaminophen (Verified Allergy, Unknown, 04/18/24) Home Meds Reported Medications Tacrolimus (Tacrolimus) 5 Mg Cap, 5 MG PO, CAP 04/18/24 Bisoprolol Fumarate (Bisoprolol Fumarate) 5 Mg Tab, 1 TAB PO DAILY, #30 TAB 5 Refills 04/18/24 Losartan Potassium (Losartan Potassium) 100 Mg Tab, 1 TAB PO DAILY, #30 TAB 5 Refills 04/18/24 Prednisone (Prednisone) 5 Mg Alfredito, 5 MG PO, PACK 04/18/24 Calcitriol (Rocaltrol) 0.25 Mcg Cap, 1 CAP PO DAILY, #30 CAP 5 Refills 04/18/24 Atorvastatin Calcium (ATORVASTATIN CALCIUM) 10 Mg Tab, 1 TAB PO DAILY, #30 TAB 5 Refills 04/18/24 Hydromorphone HCl (Hydromorphone HCl ER) 8 Mg Tab, 8 MG PO, TAB 04/18/24 Trazodone Hcl (Trazodone Hcl) 100 Mg Tab, 50 MG PO, TAB 04/18/24 Lorazepam (Lorazepam) 2 Mg Tab, 1 TAB PO TID, #90 TAB 04/18/24 Ondansetron HCl (Ondansetron Hydrochloride) 8 Mg Tab, 8 MG PO, TAB 04/18/24 Morphine Sulfate (Morphine Sulfate) 100 Mg/5 Ml Cee, 20 MG GT, ML 04/18/24 Discontinued Reported Medications Cinacalcet Hydrochloride (Sensipar) 30 Mg Tab, 50 MG PO, TAB 04/18/24 Current Medications Current Medications Medications (Trade) Dose Ordered Sig/Edmundo Route PRN Reason Start Time Stop Time Status Last Admin Nitroglycerin (Ntrostat Sublingual) 0.4 mg Q5MINP PRN SL FOR CHEST PAIN 04/17/24 23:15 Morphine Sulfate 2 mg Q30M PRN IV FOR CHEST PAIN 04/17/24 23:15 Patient Own Medication 110 mg BID PO 04/18/24 10:00 04/18/24 13:38 DC Nifedipine (Procardia Xl (Time-Release)) 30 mg DAILY PO 04/18/24 10:00 Tacrolimus (Prograf) 5 mg BID PO 04/18/24 10:00 Prednisone 5 mg DAILY PO 04/18/24 10:00 Atorvastatin Calcium (Lipitor) 20 mg HS PO 04/18/24 22:00 Patient Own Medication 5 mg DAILY PO 04/18/24 10:00 04/18/24 13:43 DC Ondansetron HCl (Zofran) 4 mg Q4HP PRN IV NAUSEA / VOMITING 04/17/24 23:15 Acetaminophen (Tylenol Tablet) 650 mg Q6HP PRN PO PAIN SCALE 1-3 OR TEMP>100.4 04/17/24 23:15 Hold Furosemide (Lasix Tablet) 40 mg DAILY PO 04/18/24 10:00 Ceftriaxone Sodium 50 ml @ 100 mls/hr DAILY@09 IV 04/18/24 06:00 04/18/24 06:43 Enoxaparin Sodium (Lovenox) 80 mg DAILY SC 04/19/24 10:00 Metoprolol Tartrate (Lopressor Tablet) 25 mg BID PO 04/18/24 22:00 Family History: Patient reports no known family medical history. Review of Systems Weakness decreased p.o. intake H&P Exam Vital Signs/I&O Vital Sign Date Time Temp Pulse Resp B/P (MAP) Pulse Ox O2 Delivery O2 Flow Rate FiO2 04/18/24 13:00 98.5 121 19 122/70 (87) 97 98.5 04/18/24 05:56 Room Air* 0 21 Physical Exam Elderly female Alert and verbal but confused unable to provide history Irregular rate and rhythm Abdomen is soft No pitting edema decreased muscle tone Kessler catheter has clear yellow urine Labs/Diagnostic Data Labs/Diagnostic Data Laboratory Tests Test 04/18/24 10:27 04/18/24 05:10 04/18/24 00:35 04/17/24 23:31 Range/Units Vitamin B12 Level 1078 H 211-911 pg/mL Vitamin D 25-Hydroxy 49.9 30.0-100 ng/mL White Blood Count 8.8 # 4.4-10.8 10^3/uL Red Blood Count 4.07 4.0-5.20 10^6/uL Hemoglobin 11.3 L 12.2-16.2 g/dL Hematocrit 34.4 L 36.0-46.0 % Mean Corpuscular Volume 84.6 80.0-100.0 fL Mean Corpuscular Hemoglobin 27.8 L 28.0-32.0 pg Mean Corpuscular Hemoglobin Concent 32.9 32.0-36.0 g/dL Red Cell Distribution Width 19.8 H 11.8-14.3 % Platelet Count 137 L 140-450 10^3/uL Mean Platelet Volume 8.2 6.9-10.8 fL Neutrophils (%) (Auto) 80.9 H 37.0-80.0 % Lymphocytes (%) (Auto) 11.1 10.0-50.0 % Monocytes (%) (Auto) 6.8 0.0-12.0 % Eosinophils (%) (Auto) 0.8 0.0-7.0 % Basophils (%) (Auto) 0.4 0.0-2.0 % Neutrophils # (Auto) 7.1 1.6-8.6 10 ^3/uL Lymphocytes # (Auto) 1.0 0.4-5.4 10 ^3/uL Monocytes # (Auto) 0.6 0-1.3 10 ^3/uL Eosinophils # (Auto) 0.1 0-0.8 10 ^3/uL Basophils # (Auto) 0 0-0.2 10 ^3/uL Nucleated Red Blood Cells 0.0 % Sodium Level 138 136-145 mmol/L Potassium Level 4.9 3.5-5.1 mmol/L Chloride Level 106 98-107 mmol/L Carbon Dioxide Level 21 20-31 mmol/L Anion Gap 11 5-15 Blood Urea Nitrogen 41 H 9-23 mg/dL Creatinine 3.77 H 0.550-1.02 mg/dL Glomerular Filtration Rate Calc 12 >90 mL/min BUN/Creatinine Ratio 10.9 10.0-20.0 Serum Glucose 67 L 74-106 mg/dL Hemoglobin A1c 5.6 <5.7 % A1C Calcium Level 10.7 H 8.7-10.4 mg/dL Phosphorus Level 4.2 2.4-5.1 mg/dL Magnesium Level 1.7 1.6-2.6 mg/dL Total Bilirubin 0.9 0.2-1.0 mg/dL Aspartate Amino Transferase (AST) 14 13-40 U/L Alanine Aminotransferase (ALT) < 9 7-40 U/L Alkaline Phosphatase 160 H 46-116 U/L Troponin I High Sensitivity 14 </=34 ng/L Total Protein 6.2 5.7-8.2 g/dL Albumin 3.6 3.2-4.8 g/dL Urine Color Yellow Yellow Urine Clarity Clear Clear Urine pH 5.0 5.0-9.0 Urine Specific [place] 1.015 1.001-1.035 Urine Protein Trace H Negative Urine Ketones Negative Negative Urine Blood Negative Negative /uL Urine Nitrite Negative Negative Urine Bilirubin Negative Negative Urine Urobilinogen Normal Negative mg/dL Urine Leukocyte Esterase Negative Negative /uL Urine RBC <1 0 - 4 /hpf Urine WBC 1 0 - 5 /hpf Urine Squamous Epithelial Cells Few <5 /hpf Urine Bacteria Few H None Seen /hpf Urine Glucose Normal Normal mg/dL Prothrombin Time 11.7 9.3-11.8 sec Prothrombin Time INR 1.11 0.9-1.15 Activated Partial Thromboplast Time 25.6 24.5-34.5 SEC Creatine Kinase 22 L 34-145 U/L Test 04/17/24 19:15 Range/Units White Blood Count 6.9 4.4-10.8 10^3/uL Red Blood Count 3.94 L 4.0-5.20 10^6/uL Hemoglobin 10.4 L 12.2-16.2 g/dL Hematocrit 32.8 L 36.0-46.0 % Mean Corpuscular Volume 83.1 80.0-100.0 fL Mean Corpuscular Hemoglobin 26.4 L 28.0-32.0 pg Mean Corpuscular Hemoglobin Concent 31.7 L 32.0-36.0 g/dL Red Cell Distribution Width 20.2 H 11.8-14.3 % Platelet Count 132 L 140-450 10^3/uL Mean Platelet Volume 8.1 6.9-10.8 fL Neutrophils (%) (Auto) 85.3 H 37.0-80.0 % Lymphocytes (%) (Auto) 8.7 L 10.0-50.0 % Monocytes (%) (Auto) 5.1 0.0-12.0 % Eosinophils (%) (Auto) 0.8 0.0-7.0 % Basophils (%) (Auto) 0.1 0.0-2.0 % Neutrophils # (Auto) 5.9 1.6-8.6 10 ^3/uL Lymphocytes # (Auto) 0.6 0.4-5.4 10 ^3/uL Monocytes # (Auto) 0.4 0-1.3 10 ^3/uL Eosinophils # (Auto) 0.1 0-0.8 10 ^3/uL Basophils # (Auto) 0 0-0.2 10 ^3/uL Nucleated Red Blood Cells 0.0 % Sodium Level 139 136-145 mmol/L Potassium Level 5.0 3.5-5.1 mmol/L Chloride Level 105 98-107 mmol/L Carbon Dioxide Level 24 20-31 mmol/L Anion Gap 10 5-15 Blood Urea Nitrogen 49 H 9-23 mg/dL Creatinine 3.62 H 0.550-1.02 mg/dL Glomerular Filtration Rate Calc 13 >90 mL/min BUN/Creatinine Ratio 13.5 10.0-20.0 Serum Glucose 83 74-106 mg/dL Lactic Acid Level 1.2 0.4-2.0 mmol/L Calcium Level 10.2 8.7-10.4 mg/dL Total Bilirubin 0.9 0.2-1.0 mg/dL Aspartate Amino Transferase (AST) 14 13-40 U/L Alanine Aminotransferase (ALT) < 9 7-40 U/L Alkaline Phosphatase 154 H 46-116 U/L Ammonia < 10 L 11-32 umol/L B-Type Natriuretic Peptide 514.86 0-100 pg/mL Total Protein 5.6 L 5.7-8.2 g/dL Albumin 3.6 3.2-4.8 g/dL Thyroid Stimulating Hormone (TSH) 2.58 0.55-4.78 uIU/mL Assessment Acute injury in renal transplant Baseline transplant function is unknown Breast cancer with metastasis to the bone and spine Atrial fibrillation Hypertension Clinically patient appears hypovolemic I recommend another random IV fluid hydration Patient's baseline renal function is unknown to me and therefore the severity of her injury is unclear at this time I have discussed with family to obtain outpatient records including a creatinine and an EGFR CT scan and ultrasound of the abdomen does not show any acute graft pathology therefore indicating no obstruction and no kidney stones. Continue with IV fluids strict Is&Os Confirm tacrolimus dosing is 5 mg p.o. twice a day, A tacrolimus trough level was sent today. Urge prompt results of this trough as high progress levels can lead to kidney injury. Continue prednisone Rate control and prevent hypotension Avoid contrast studies Hematology on the case Rest of care as per primary medical team Plan discussed with: Patient RANDALL JAMES MD Apr 18, 2024 14:57
[2024-04-18] MEDS: ONDANSETRON HCL 4 MG/2 ML VIAL IV PRN (14:58)
[2024-04-18] MEDS: SODIUM CHLORIDE 0.9% 1,000 ML IV ONE (15:00)
--- NOTE | 2024-04-18 15:50 | DVHSR ---
APPROVED REPORT EXAM: Two-dimensional and M-mode echocardiogram with Doppler and color Doppler. Blood Pressure: 124/79 mmHg RISK FACTORS Height: 5'2", Weight: 182 DIMENSIONS LVDd4.2 (3.8-5.7cm)LA (2D)4.5 (1.9-4.0cm)Aortic Root3.2 (2.0-3.7cm) LVDs2.9 (2.5-4.0cm)LA (MM) (1.9-4.0cm)Aortic Cusp Exc1.8 (1.5-2.0cm) EF (%) 56.0 (55-70%)Rt. Atrium5.2 (1.9-4.0cm)Asc. Aorta cm IVSd1.7 (0.7-1.1cm)RV (D) (1.8-2.4cm) PWd1.0 (0.7-1.1cm) Mitral Valve MitralMitral Stenosis E/A ratio0.02D MVAcm2 Aortic Valve Aortic ValveAortic Stenosis V10.68m/Gwen Mean GR.2mmHg V20.92m/Gwen Peak GR.3mmHg LVOT Diameter2.2 (1.8-2.4cm)Doppler AVA2.81cm2 Pulmonic Valve V20.72m/s Tricuspid Valve TR Velocity2.48m/s [id number] Other Information Quality : Technically LimitedRhythm : Technically limited study due to patient moving. Conclusion Moderately concentric left ventricular hypertrophy. Patient in a fast rhythm, thus left ventricular systolic function could not be assessed accurately. Grossly normal left ventricular systolic funct ion at 55%. Normal right ventricular systolic function. Slightly increased right ventricular systolic [id number] mm of mercury. Moderately dilated right and atria. The aortic valve is mildly thickened and sclerotic. Normal mitral valve structure and function. Moderately severe tricuspid valve regurgitation. The pulmonary valve is grossly normal. No pericardial effusion.
[2024-04-18] MEDS: FUROSEMIDE 40 MG/4 ML VIAL IV ONE (17:16)
[2024-04-18] MEDS: ATORVASTATIN 20 MG TAB PO SCH (21:43)
[2024-04-18] MEDS: METOPROLOL TARTRATE 25 MG TAB PO SCH (21:45)
[2024-04-19 00:03] LABS: Sodium Urine 60 mmol/L (40-220)
[2024-04-19 00:08] LABS: Protein, Urine 89.3 mg/dL (1-14)
[2024-04-19 00:10] LABS: Opiate Scree,Urine Pos (NEGATIVE)
[2024-04-19 00:11] LABS: Creatinine, Urine 128.15 mg/dL (30.0-125.0)
[2024-04-19 00:25] LABS: Amphetamine Screen, Urine Neg (NEGATIVE); Barbiturate Scree,Urine Neg (NEGATIVE); Benzodiazephine Screen, Urine Neg (NEGATIVE); Cannabinoid Screen, Urine Neg (NEGATIVE); Cocaine Screen, Urine Neg (NEGATIVE); Phencyclidine Screen, Urine Neg (NEGATIVE)
[2024-04-19 01:00] VITALS: BP 100/63; PULSE 122; RESP 18; TEMP 98; O2SAT 95
[2024-04-19 04:37] VITALS: BP 118/77; PULSE 126; RESP 20; TEMP 97.9; O2SAT 94
[2024-04-19 08:15] LABS: Basophils # (auto) 0 10 ^3/uL (0-0.2); Basophils % (auto) 0.2 % (0.0-2.0); Eosinophils # (auto) 0.1 10 ^3/uL (0-0.8); Eosinophils % (auto) 0.8 % (0.0-7.0); Hemoglobin 9.5 g/dL (12.2-16.2); Lymphocytes # (auto) 0.8 10 ^3/uL (0.4-5.4); Lymphocytes % (auto) 10.4 % (10.0-50.0); Mean Corpuscular Hgb Conc. 32.8 g/dL (32.0-36.0); Mean Corpuscular Volume 82.3 fL (80.0-100.0); Monocytes # (auto) 0.6 10 ^3/uL (0-1.3); Monocytes % (auto) 7.3 % (0.0-12.0); Neutrophils # (auto) 6.6 10 ^3/uL (1.6-8.6); Neutrophils % (auto) 81.3 % (37.0-80.0); Nucleated Red Blood Cells % 0.1 %; Platelet Count (auto) 147 10^3/uL (140-450); Red Blood Cells 3.53 10^6/uL (4.0-5.20); Red Cell Distribution Width 19.7 % (11.8-14.3); White Blood Cell 8.1 10^3/uL (4.4-10.8)
[2024-04-19 08:23] LABS: Anion Gap 10 (5-15); Calcium 10.1 mg/dL (8.7-10.4); Carbon Dioxide 22 mmol/L (20-31); Potassium 4.6 mmol/L (3.5-5.1); Sodium 140 mmol/L (136-145)
[2024-04-19 08:29] LABS: BUN/Creatinine Ratio 12.7 (10.0-20.0)
[2024-04-19 08:30] LABS: Blood Urea Nitrogen 43 mg/dL (9-23); Chloride 108 mmol/L (98-107); Glucose 71 mg/dL (74-106)
[2024-04-19 08:37] VITALS: BP 131/75; PULSE 128; RESP 16; TEMP 97.2; O2SAT 100
[2024-04-19] MEDS ORDERED: FUROSEMIDE 40 MG/4 ML VIAL IV SCH (10:00)
[2024-04-19 12:46] VITALS: BP 133/75; PULSE 129; RESP 16; TEMP 97.5; O2SAT 97
[2024-04-19] MEDS: ENOXAPARIN SOD 80 MG/0.8ML SYRINGE SC SCH (13:17)
[2024-04-19] MEDS: SODIUM CHLORIDE 0.9% 1,000 ML IV SCH (13:21)
--- NOTE | 2024-04-19 13:50 | DVH ---
EXAM: NM BONE WHOLE BODY History: bone cancer Comparison Study: None available TECHNIQUE: At approximately 3 hours following intravenous administration 26.7 mCi of Tc-99m MDP, ante rior and posterior whole body planar images were obtained. FINDINGS: Abnormal foci of radiotracer uptake in the right shoulder, right humerus, bilateral ribs, and pelvis. Additional foci of uptake in the thoracolumbar spine, right knee and bilateral feet, nonspecific. Minimal physiologic radiotracer distribution in bilateral kidneys and urinary bladder. IMPRESSION: 1. 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 2. Uptake in the thoracolumbar spine, right knee, and bilateral feet is nonspecific and may reflect d egenerative changes, trauma, or metastatic disease.
--- NOTE | 2024-04-19 14:07 | DVHPNRES ---
Progress Note Date Seen: Apr 19, 2024 Resident Creating Document: ANUM CARABALLO RESIDENT Medical Necessity Reason Pt with a Central, PICC or Fol: No Subjective Review of Systems NÉSTOR DAVENPORT is a 74-year-old female with a PMH of HTN, HLD, AFib, breast cancer status post resection, bone cancer, renal and liver transplant presented to the ED accompanied by niece with the chief complaints of generalized weakness, confused and dehydration for past couple of weeks. Patient seen and examined at the bedside. Patient reported improvement in her weakness and other symptoms since admission. 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 There is asymmetric compression deformity along the left side of the L4 vertebral body compatible with a pathologic fracture. There are other areas of cortical disruption, notably in the pelvis and patchy subsolid and ground-glass opacities in the right lung, the largest in the posterior right lower lobe measuring 1.[address] Rosenberg evaluation. Nephrology successfactors consultant evaluated the patient, advised is to continue IVF and strict I and Os, to continue prednisolone and tacrolimus. Patient reports: No new complaints, Feels better Objective vital signs Vital Sign Date Time Temp Pulse Resp B/P (MAP) Pulse Ox O2 Delivery O2 Flow Rate FiO2 04/19/24 13:14 129 133/75 04/19/24 12:46 97.5 16 97 97.5 04/18/24 20:00 Room Air* 0 21 Total Intake and Output 04/18/24 04/18/24 04/19/24 15:00 23:00 07:00 Intake Total 50 ml 900 ml 1270 ml Output Total 500 ml 200 ml Balance 50 ml 400 ml 1070 ml medications Current Medications Medications Dose Ordered Sig/Edmundo Route Start Time Stop Time Status Last Admin Dose Admin Nitroglycerin 0.4 mg Q5MINP PRN SL 04/17/24 23:15 Morphine Sulfate 2 mg Q30M PRN IV 04/17/24 23:15 Nifedipine 30 mg DAILY PO 04/18/24 10:00 04/19/24 13:13 30 MG Tacrolimus 5 mg BID PO 04/18/24 10:00 04/19/24 13:14 5 MG Prednisone 5 mg DAILY PO 04/18/24 10:00 04/19/24 13:12 5 MG Atorvastatin Calcium 20 mg HS PO 04/18/24 22:00 04/18/24 21:43 20 MG Ondansetron HCl 4 mg Q4HP PRN IV 04/17/24 23:15 04/18/24 14:58 4 MG Acetaminophen 650 mg Q6HP PRN PO 04/17/24 23:15 Hold Enoxaparin Sodium 80 mg DAILY SC 04/19/24 10:00 04/19/24 13:17 80 MG Metoprolol Tartrate 25 mg BID PO 04/18/24 22:00 04/19/24 13:14 25 MG Trazodone HCl 50 mg HS PO 04/19/24 22:00 Sodium Chloride 1,000 ml @ 125 mls/hr Q8H IV 04/19/24 13:00 04/19/24 13:21 125 MLS/HR Ceftriaxone Sodium 50 ml @ 100 mls/hr DAILY@09 IV 04/20/24 09:00 Examination Pt is lying on bed ( Bed bound) General Appearance: mildly confused but, Oriented X3, Cooperative, HEENT: Atraumatic, Mucous membranes dry Respiratory: Clear to auscultation, Normal air movement, No added sounds Cardiovascular: Regular rate, Normal S1, Normal S2, No murmurs Abdominal: Active bowel sounds, Soft, no distention, no tenderness Extremities: right lower extremity tenderness but no edema Skin: No Significant rash, except past surgical scars Neuro: limited exam due to patient status Normal speech, sensorimotor deficits none Psych/Mental Status: Mental status NL, Mood NL Nurse was there as sharperone during examination laboratory and microbiology Laboratory Tests 04/19/24 07:19 Test 04/19/24 07:19 Range/Units Serum Glucose 71 L 74-106 mg/dL Microbiology Date/Time Source Procedure Growth Status 04/17/24 23:31 Blood Blood Culture - Preliminary NO GROWTH AFTER 24 HOURS OF INCUBATION. Resulted Labs and/or images reviewed: Labs reviewed by me, Image(s) reviewed by me Problem List/Assessment/Plan Problem List/Assessment/Plan # acute metabolic or toxic encephalopathy # dehydration # acute renal failure likely due to VMN vs CKD # History of kidney and liver transplant in 2016 and takes calcitriol, tacrolimus and prednisone - CT of the brain without contrast showed chronic changes with encephalomalacia - currently hydrating 125 mL/hour - kidney ultrasound showed mild right renal pelviectasis and nonspecific cortical thinning left kidney - Nephrology successfactors consultant evaluated the patient, advised is to continue IVF and strict I and Os, to continue prednisolone and tacrolimus. - currently on tacrolimus and prednisone # History of left modified radical mastectomy in 2022 at [place] without any adjuvant treatment # Bone cancer lytic appearing lesions in T4,T5, T8, T9 and T10 , L4 # ?lung mass - CT thoracic spine and lumbar spine showed lytic appearing lesions in T4,T5, T8, T9 and T10 , L4 vertebral bodies. Bony metastatic disease not excluded. Chronic nondisplaced fracture deformity of right posterior T11 vertebral body, lytic lesion. - Dr. Rosenberg evaluated the patient advised to order bone scan, CT chest abdomen pelvis and brain MRI without contrast along with CA 27.29 - CT chest abdomen pelvis showed multiple lytic osseous lesions throughout the thoracolumbar spine, pelvis and in the bilateral ribs. There is asymmetric compression deformity along the left side of the L4 vertebral body compatible with a pathologic fracture. There are other areas of cortical disruption, notably in the pelvis and patchy subsolid and ground-glass opacities in the right lung, the largest in the posterior right lower lobe measuring 1.6 cm. - advised outpatient follow up after finishing all imaging & lab studies # Hypertension # Atrial fibrillation with secondary hypercoagulable state # ? acute versus chronic systolic versus diastolic CHF - currently on telemetry unit - patient is on bisoprolol, Lovenox, nifedipine 30 mg -discontinued Pradaxa and Lasix - consulted cardiology for further evaluation - elevated BNP - ordered echocardiogram # right lower extremity DVT -continue Lovenox -evident on venous Doppler # Hyperlipidemia - currently on Lipitor Lovenox for now Protonix Renal diet Reconciled home meds Goals of care discussed with the patient for more than 27 minutes: Full code status Case management discussed with Dr. Merrill, patient and nurse Plan discussed with: Patient My Orders My Orders Orders - ANUM CARABALLO RESIDENT Procedure Category Date Status Time Pt Request For Service PT 04/19/24 Logged 12:44 Trazodone Hcl PHA 04/19/24 In Process (Desyrel) 22:00 Sodium Chloride 0.9% PHA 04/19/24 In Process 13:00 Ceftriaxone 1gm/50ml PHA 04/20/24 In Process D5w (Rocephin) 09:00 Date of Service: Apr 19, 2024 Billing Provider: RENEE MERRILL MD Common Visit Codes: [id number] INP/OBS CARE(HIGH) HUMBERTO CARABALLOELIZABETH RESIDENT Apr 19, 2024 14:07 RENEE MERRILL MD Apr 20, 2024 20:33
--- NOTE | 2024-04-19 17:20 | DVHPN2 ---
Progress Note - Dictate Date Seen: Apr 19, 2024 Medical Necessity Reason Pt with a Central, PICC or Fol: No Subjective Resting comfortably this afternoon vital signs Vital Sign Date Time Temp Pulse Resp B/P (MAP) Pulse Ox O2 Delivery O2 Flow Rate FiO2 04/19/24 13:14 129 133/75 04/19/24 12:46 97.5 16 97 97.5 04/18/24 20:00 Room Air* 0 21 Total Intake and Output 04/18/24 04/18/24 04/19/24 15:00 23:00 07:00 Intake Total 50 ml 900 ml 1270 ml Output Total 500 ml 200 ml Balance 50 ml 400 ml 1070 ml medications Current Medications Medications Dose Ordered Sig/Edmundo Route Start Time Stop Time Status Last Admin Dose Admin Nitroglycerin 0.4 mg Q5MINP PRN SL 04/17/24 23:15 Morphine Sulfate 2 mg Q30M PRN IV 04/17/24 23:15 Nifedipine 30 mg DAILY PO 04/18/24 10:00 04/19/24 13:13 30 MG Tacrolimus 5 mg BID PO 04/18/24 10:00 04/19/24 13:14 5 MG Prednisone 5 mg DAILY PO 04/18/24 10:00 04/19/24 13:12 5 MG Atorvastatin Calcium 20 mg HS PO 04/18/24 22:00 04/18/24 21:43 20 MG Ondansetron HCl 4 mg Q4HP PRN IV 04/17/24 23:15 04/18/24 14:58 4 MG Acetaminophen 650 mg Q6HP PRN PO 04/17/24 23:15 Hold Enoxaparin Sodium 80 mg DAILY SC 04/19/24 10:00 04/19/24 13:17 80 MG Metoprolol Tartrate 25 mg BID PO 04/18/24 22:00 04/19/24 13:14 25 MG Trazodone HCl 50 mg HS PO 04/19/24 22:00 Sodium Chloride 1,000 ml @ 125 mls/hr Q8H IV 04/19/24 13:00 04/19/24 13:21 125 MLS/HR Ceftriaxone Sodium 50 ml @ 100 mls/hr DAILY@09 IV 04/20/24 09:00 objective Gen: nad heent: nc/at, mmm lungs: cta anteriorly cvs: no rub abd: soft, bowel sounds audible ext: no edema laboratory and microbiology Laboratory Tests 04/19/24 07:19 Test 04/19/24 07:19 Range/Units Serum Glucose 71 L 74-106 mg/dL Problem List Acute injury in renal transplant Baseline transplant function is unknown Breast cancer with metastasis to the bone and spine Atrial fibrillation Hypertension - trough tacrolimus level pending - continue with IV fluids - avoidance of intravenous contrast studies if able. - Plan discussed with: Other EDIS HART MD Apr 19, 2024 17:19
[2024-04-19 17:24] VITALS: BP 133/79; PULSE 126; RESP 14; TEMP 97.9; O2SAT 96
[2024-04-19 21:00] VITALS: BP 119/77; PULSE 127; RESP 18; TEMP 97.7; O2SAT 96
[2024-04-19] MEDS: traZODone HCL 50 MG TAB PO SCH (23:04)
[2024-04-20] VITALS (7 sets, daily range): BP systolic 126–135; BP diastolic 68–89; PULSE 126–129; RESP 16–20; TEMP 97.6–98.4; O2SAT 94–97
[2024-04-20] MEDS: cefTRIAXone 1GM/50ML D5W 50 ML IV SCH (10:01)
[2024-04-20] MEDS: MORPHINE SULFATE INJ 2 MG/ml SYRG IV PRN (11:35)
[2024-04-20 11:47] LABS: Basophils # (auto) 0 10 ^3/uL (0-0.2); Basophils % (auto) 0.1 % (0.0-2.0); Eosinophils # (auto) 0.1 10 ^3/uL (0-0.8); Eosinophils % (auto) 1.1 % (0.0-7.0); Hematocrit 26.2 % (36.0-46.0); Lymphocytes # (auto) 0.9 10 ^3/uL (0.4-5.4); Lymphocytes % (auto) 10.3 % (10.0-50.0); Mean Corpuscular Hemoglobin 27.9 pg (28.0-32.0); Mean Corpuscular Hgb Conc. 34.2 g/dL (32.0-36.0); Mean Corpuscular Volume 81.5 fL (80.0-100.0); Monocytes # (auto) 0.6 10 ^3/uL (0-1.3); Monocytes % (auto) 7.5 % (0.0-12.0); Neutrophils # (auto) 6.7 10 ^3/uL (1.6-8.6); Platelet Count (auto) 139 10^3/uL (140-450); Red Blood Cells 3.21 10^6/uL (4.0-5.20); Red Cell Distribution Width 20.2 % (11.8-14.3); White Blood Cell 8.3 10^3/uL (4.4-10.8)
[2024-04-20 11:53] LABS: Chloride 107 mmol/L (98-107); Potassium 4.2 mmol/L (3.5-5.1); Sodium 140 mmol/L (136-145)
[2024-04-20 11:54] LABS: Anion Gap 11 (5-15); Calcium 10.2 mg/dL (8.7-10.4); Carbon Dioxide 22 mmol/L (20-31)
[2024-04-20 11:59] LABS: Glucose 84 mg/dL (74-106)
[2024-04-20 12:00] LABS: BUN/Creatinine Ratio 13.7 (10.0-20.0); Blood Urea Nitrogen 41 mg/dL (9-23); Magnesium 1.4 mg/dL (1.6-2.6)
[2024-04-20 12:02] LABS: Phosphorus 3.4 mg/dL (2.4-5.1)
--- NOTE | 2024-04-20 14:47 | DVHPN2 ---
Progress Note - Dictate Date Seen: Apr 20, 2024 Medical Necessity Reason Pt with a Central, PICC or Fol: No Subjective no significant overnight events vital signs Vital Sign Date Time Temp Pulse Resp B/P (MAP) Pulse Ox O2 Delivery O2 Flow Rate FiO2 04/20/24 11:49 97.6 126 20 135/89 (104) 97 97.6 04/20/24 08:00 Room Air* 0 21 Total Intake and Output 04/19/24 04/19/24 04/20/24 15:00 23:00 07:00 Intake Total 260 ml 760 ml 300 ml Output Total 325 ml 300 ml Balance 260 ml 435 ml 0 ml medications Current Medications Medications Dose Ordered Sig/Edmundo Route Start Time Stop Time Status Last Admin Dose Admin Nitroglycerin 0.4 mg Q5MINP PRN SL 04/17/24 23:15 Morphine Sulfate 2 mg Q30M PRN IV 04/17/24 23:15 Nifedipine 30 mg DAILY PO 04/18/24 10:00 04/20/24 10:00 30 MG Tacrolimus 5 mg BID PO 04/18/24 10:00 04/20/24 10:14 5 MG Prednisone 5 mg DAILY PO 04/18/24 10:00 04/20/24 10:01 5 MG Atorvastatin Calcium 20 mg HS PO 04/18/24 22:00 04/19/24 23:04 20 MG Ondansetron HCl 4 mg Q4HP PRN IV 04/17/24 23:15 04/18/24 14:58 4 MG Acetaminophen 650 mg Q6HP PRN PO 04/17/24 23:15 Hold Enoxaparin Sodium 80 mg DAILY SC 04/19/24 10:00 04/20/24 10:00 80 MG Metoprolol Tartrate 25 mg BID PO 04/18/24 22:00 04/20/24 10:01 25 MG Trazodone HCl 50 mg HS PO 04/19/24 22:00 04/19/24 23:04 50 MG Sodium Chloride 1,000 ml @ 125 mls/hr Q8H IV 04/19/24 13:00 04/19/24 21:05 125 MLS/HR Ceftriaxone Sodium 50 ml @ 100 mls/hr DAILY@09 IV 04/20/24 09:00 04/20/24 10:01 100 MLS/HR Morphine Sulfate 1 mg Q4HP PRN IV 04/20/24 10:00 04/20/24 11:35 1 MG objective Gen: nad heent: nc/at, mmm lungs: cta anteriorly cvs: no rub abd: soft, bowel sounds audible ext: no edema laboratory and microbiology Laboratory Tests 04/20/24 11:04 Test 04/20/24 11:04 Range/Units Serum Glucose 84 74-106 mg/dL Problem List Acute injury in renal transplant Baseline transplant function is unknown Breast cancer with metastasis to the bone and spine Atrial fibrillation Hypertension - GFR of allograft improving - will continue with current plan of care Plan discussed with: Other EDIS HART MD Apr 20, 2024 14:47
--- NOTE | 2024-04-20 22:59 | DVHPNRES ---
Progress Note Date Seen: Apr 20, 2024 Resident Creating Document: NICHOLAS DAY RESIDENT Medical Necessity Reason Pt with a Central, PICC or Fol: No Subjective Review of Systems Patient seen and examined at bedside. Currently complains of lower right limb pain especially when she moves foot. Also presented pain with physical therapy mobilized her Objective vital signs Vital Sign Date Time Temp Pulse Resp B/P (MAP) Pulse Ox O2 Delivery O2 Flow Rate FiO2 04/20/24 21:00 98.4 129 18 126/68 (87) 94 98.4 04/20/24 08:00 Room Air* 0 21 Total Intake and Output 04/19/24 04/19/24 04/20/24 15:00 23:00 07:00 Intake Total 260 ml 760 ml 300 ml Output Total 325 ml 300 ml Balance 260 ml 435 ml 0 ml medications Current Medications Medications Dose Ordered Sig/Edmundo Route Start Time Stop Time Status Last Admin Dose Admin Nitroglycerin 0.4 mg Q5MINP PRN SL 04/17/24 23:15 Morphine Sulfate 2 mg Q30M PRN IV 04/17/24 23:15 Nifedipine 30 mg DAILY PO 04/18/24 10:00 04/20/24 10:00 30 MG Tacrolimus 5 mg BID PO 04/18/24 10:00 04/20/24 10:14 5 MG Prednisone 5 mg DAILY PO 04/18/24 10:00 04/20/24 10:01 5 MG Atorvastatin Calcium 20 mg HS PO 04/18/24 22:00 04/19/24 23:04 20 MG Ondansetron HCl 4 mg Q4HP PRN IV 04/17/24 23:15 04/20/24 18:55 4 MG Acetaminophen 650 mg Q6HP PRN PO 04/17/24 23:15 Hold Enoxaparin Sodium 80 mg DAILY SC 04/19/24 10:00 04/20/24 10:00 80 MG Metoprolol Tartrate 25 mg BID PO 04/18/24 22:00 04/20/24 10:01 25 MG Trazodone HCl 50 mg HS PO 04/19/24 22:00 04/19/24 23:04 50 MG Sodium Chloride 1,000 ml @ 125 mls/hr Q8H IV 04/19/24 13:00 04/20/24 14:46 125 MLS/HR Ceftriaxone Sodium 50 ml @ 100 mls/hr DAILY@09 IV 04/20/24 09:00 04/20/24 10:01 100 MLS/HR Morphine Sulfate 1 mg Q4HP PRN IV 04/20/24 10:00 04/20/24 16:53 1 MG Examination Patient lying in bed, in no acute distress General: Not in distress; afebrile, mucosae are moist Cardiovascular: Normal S1 and S2. No murmurs, gallops or rubs Respiratory: Normal ventilation mechanics. Clear lung sounds on auscultation Abdomen: Soft, nontender, no organomegaly, normal bowel sounds MSK/skin: Mobilizes 4 limbs. Skin is dry and warm. Lower limb asymmetry, increased diameter on right lower limb, painful, Homans sign positive Neurological: Oriented in 1 spheres (only in person). No motor no sensitive deficits. Pupils are isocoric and reactive laboratory and microbiology Laboratory Tests 04/20/24 11:04 Test 04/20/24 11:04 Range/Units Serum Glucose 84 74-106 mg/dL Microbiology Date/Time Source Procedure Growth Status 04/17/24 23:31 Blood Blood Culture - Preliminary NO GROWTH AFTER 48 HOURS OF INCUBATION. Resulted Labs and/or images reviewed: Labs reviewed by me, Image(s) reviewed by me Problem List/Assessment/Plan Problem List/Assessment/Plan Assessment Acute metabolic or toxic encephalopathy Dehydration Acute renal failure likely due to VMN vs CKD History of kidney and liver transplant - on immunosuppressants History of left modified radical mastectomy in 2022 Bone cancer lytic appearing lesions in T4,T5, T8, T9 and T10 , L4 Questionable lung mass Hypertension Permanent Atrial fibrillation with RVR ([id number] of 5/HAS-BLED of 3) with secondary hypercoagulable state - currently anticoagulated Acute on chronic diastolic CHF Right lower extremity DVT Dyslipidemia Bed-bound Revoked hospice Plan On admission completed head CT which showed no acute intracranial pathology, chronic changes (encephalomalacia) Oncology consulted: Ordered complementary workup to evaluate end-stage cancer (CT chest abdomen and pelvis showed multiple lytic osseous lesions throughout thoracolumbar spine,pelvis and in the bilateral ribs. There is asymmetric compression deformity along the left side of the L4 vertebral body compatible with a pathologic fracture. There are other areas of cortical disruption, notably in the pelvis and patchy subsolid and ground-glass opacities in the right lung, the largest in the posterior right lower lobe measuring 1.6 cm, bone scan with multiple lytic lesions throughout body, brain MRI with no metastases, negative CA 27.29). Awaiting for report from [place]. If reports does not present biopsy, may require biopsy as inpatient Currently on anticoagulation with enoxaparin due to right femoral DVT (evidence on ultrasound) and atrial fibrillation Nephrology consulted: Indicating IV fluids, kidney ultrasound, and tacrolimus trough (pending) Completed echocardiogram which shows LVEF 55%, RVSP 33 mmHg, scleral calcification and aortic valve. Currently on tacrolimus and prednisone Goals of care discussed with patient and family (granddaughter who is a power senior attorney) for 20 minutes: Full code status Case management discussed with Dr. Stevenson, patient and nurse: Awaiting records from [place] and tacrolimus trough. urban redevelopment specialist on board, if biopsy is pending may require biopsy as inpatient (pending [place] records). Ordered high school social studies tutor for home health (physical therapy at home for eventual discharge planning). Plan discussed with: Patient, Other (Niece and nurses) My Orders My Orders Orders - NICHOLAS DAY RESIDENT Procedure Category Date Status Time Morphine Sulfate PHA 04/20/24 In Process Injection 10:00 Addendum Addendum Addendum I was physically present for the bettencourt portions of the service provided to patient by THE RESIDENT. I have reviewed the documentation, discussed the case with resident and agree with the resident's documentation except as noted. Also the patient's clinical case was discussed with the patient's nurse. This medical document was created using an electronic medical record system with computerized dictation system. Although this document has been carefully reviewed, there might still be some phonetic and typographical errors. These areas are purely typographical due to imperfections of the software programs, and do not reflect any compromise in the patient's medical care. Late signature. Date of Service: Apr 20, 2024 Billing Provider: JEM STEVENSON MD Common Visit Codes: [id number] INP/OBS CARE(HIGH) Secondary Visit Codes: [id number] CARE PLAN 30 MINUTES (20 minutes) NICHOLAS DAY Apr 20, 2024 22:59 JEM STEVENSON MD Apr 22, 2024 07:49
[2024-04-21] VITALS (7 sets, daily range): BP systolic 124–147; BP diastolic 71–88; PULSE 120–129; RESP 16–20; TEMP 97.4–98.8; O2SAT 95–98
[2024-04-21 07:32] LABS: Basophils # (auto) 0 10 ^3/uL (0-0.2); Basophils % (auto) 0.2 % (0.0-2.0); Eosinophils # (auto) 0.1 10 ^3/uL (0-0.8); Monocytes # (auto) 0.6 10 ^3/uL (0-1.3)
[2024-04-21 07:35] LABS: Eosinophils % (auto) 1.3 % (0.0-7.0); Hematocrit 25.8 % (36.0-46.0); Hemoglobin 8.5 g/dL (12.2-16.2); Lymphocytes # (auto) 0.8 10 ^3/uL (0.4-5.4); Lymphocytes % (auto) 9.7 % (10.0-50.0); Mean Corpuscular Hgb Conc. 32.8 g/dL (32.0-36.0); Mean Corpuscular Volume 82.1 fL (80.0-100.0); Monocytes % (auto) 6.5 % (0.0-12.0); Neutrophils % (auto) 82.3 % (37.0-80.0); Platelet Count (auto) 148 10^3/uL (140-450); Red Blood Cells 3.14 10^6/uL (4.0-5.20); White Blood Cell 8.5 10^3/uL (4.4-10.8)
[2024-04-21 07:36] LABS: Red Cell Distribution Width 20.1 % (11.8-14.3)
[2024-04-21 07:42] LABS: INR 1.12 (0.9-1.15); Partial Thromboplastin Time 30.5 SEC (24.5-34.5); Prothrombin Time 11.8 sec (9.3-11.8)
[2024-04-21 07:45] LABS: Anion Gap 11 (5-15); BUN/Creatinine Ratio 12.5 (10.0-20.0); Bilirubin, Total 0.6 mg/dL (0.2-1.0); Calcium 10.4 mg/dL (8.7-10.4); Carbon Dioxide 21 mmol/L (20-31); Glucose 81 mg/dL (74-106); Phosphorus 3.1 mg/dL (2.4-5.1); Potassium 4.1 mmol/L (3.5-5.1); Sodium 141 mmol/L (136-145)
[2024-04-21 07:49] LABS: Alanine Aminotransferase < 9 U/L (7-40); Albumin 3.1 g/dL (3.2-4.8); Alkaline Phosphatase 123 U/L (46-116); Aspartate Aminotransferase 11 U/L (13-40); Blood Urea Nitrogen 34 mg/dL (9-23); Chloride 109 mmol/L (98-107); Total Protein 5.2 g/dL (5.7-8.2)
[2024-04-21 07:50] LABS: Magnesium 1.4 mg/dL (1.6-2.6)
--- NOTE | 2024-04-21 11:28 | DVHPNRES ---
Progress Note Date Seen: Apr 21, 2024 Resident Creating Document: ANUM CARABALLO RESIDENT Medical Necessity Reason Pt with a Central, PICC or Fol: No Subjective Review of Systems NÉSTOR DAVENPORT is a 74-year-old female with a PMH of HTN, HLD, AFib, breast cancer status post resection, bone cancer, renal and liver transplant presented to the ED accompanied by niece with the chief complaints of generalized weakness, confused and dehydration for past couple of weeks. Patient seen and examined at the bedside. Patient reported no new complaints and improvement in her symptoms since admission. Today noon due to confusion ordered new head CT, showed no acute changes Pending reports from [place], consulted Dr. Rosenberg, advised biopsy may needed if not done 1 at [place]. Unable to tolerate physical therapy. Objective vital signs Vital Sign Date Time Temp Pulse Resp B/P (MAP) Pulse Ox O2 Delivery O2 Flow Rate FiO2 04/21/24 09:58 128 147/84 04/21/24 08:25 Room Air* 0 21 04/21/24 08:00 98.0 20 95 98.0 Total Intake and Output 04/20/24 04/20/24 04/21/24 15:00 23:00 07:00 Intake Total 240 ml 670 ml 400 ml Output Total 300 ml 675 ml Balance 240 ml 370 ml -275 ml medications Current Medications Medications Dose Ordered Sig/Edmundo Route Start Time Stop Time Status Last Admin Dose Admin Nitroglycerin 0.4 mg Q5MINP PRN SL 04/17/24 23:15 Morphine Sulfate 2 mg Q30M PRN IV 04/17/24 23:15 Nifedipine 30 mg DAILY PO 04/18/24 10:00 04/21/24 09:58 30 MG Tacrolimus 5 mg BID PO 04/18/24 10:00 04/21/24 09:57 5 MG Prednisone 5 mg DAILY PO 04/18/24 10:00 04/21/24 09:59 5 MG Atorvastatin Calcium 20 mg HS PO 04/18/24 22:00 04/20/24 22:44 20 MG Ondansetron HCl 4 mg Q4HP PRN IV 04/17/24 23:15 04/20/24 18:55 4 MG Acetaminophen 650 mg Q6HP PRN PO 04/17/24 23:15 Hold Enoxaparin Sodium 80 mg DAILY SC 04/19/24 10:00 04/21/24 09:59 80 MG Metoprolol Tartrate 25 mg BID PO 04/18/24 22:00 04/21/24 09:58 25 MG Trazodone HCl 50 mg HS PO 04/19/24 22:00 04/20/24 22:43 50 MG Sodium Chloride 1,000 ml @ 125 mls/hr Q8H IV 04/19/24 13:00 04/21/24 05:00 125 MLS/HR Ceftriaxone Sodium 50 ml @ 100 mls/hr DAILY@09 IV 04/20/24 09:00 04/21/24 09:31 100 MLS/HR Morphine Sulfate 1 mg Q4HP PRN IV 04/20/24 10:00 04/20/24 16:53 1 MG Examination Pt is lying on bed ( Bed bound) General Appearance: mildly confused but, Oriented X2, Cooperative, HEENT: Atraumatic, Mucous membranes dry Respiratory: Clear to auscultation, Normal air movement, No added sounds Cardiovascular: Regular rate, Normal S1, Normal S2, No murmurs Abdominal: Active bowel sounds, Soft, no distention, no tenderness Extremities: right lower extremity tenderness but no edema Skin: No Significant rash, except past surgical scars Neuro: limited exam due to patient status Normal speech, sensorimotor deficits none Psych/Mental Status: Mental status NL, Mood NL Nurse was there as sharpanahyne during examination laboratory and microbiology Laboratory Tests 04/21/24 06:49 Test 04/21/24 06:49 Range/Units Serum Glucose 81 74-106 mg/dL Microbiology Date/Time Source Procedure Growth Status 04/17/24 23:31 Blood Blood Culture - Preliminary NO GROWTH AFTER 72 HOURS OF INCUBATION. Resulted Labs and/or images reviewed: Labs reviewed by me, Image(s) reviewed by me Problem List/Assessment/Plan Problem List/Assessment/Plan # acute metabolic or toxic encephalopathy # dehydration # acute renal failure likely due to VMN vs CKD # History of kidney and liver transplant in 2016 and takes calcitriol, tacrolimus and prednisone - CT of the brain without contrast showed chronic changes with encephalomalacia - currently hydrating 125 mL/hour - kidney ultrasound showed mild right renal pelviectasis and nonspecific cortical thinning left kidney - Nephrology consumer experience consultant evaluated the patient, advised is to continue IVF and strict I and Os, to continue prednisolone and tacrolimus. - currently on tacrolimus and prednisone # History of left modified radical mastectomy in 2022 at [place] without any adjuvant treatment # Bone cancer lytic appearing lesions in T4,T5, T8, T9 and T10 , L4 # ?lung mass - CT thoracic spine and lumbar spine showed lytic appearing lesions in T4,T5, T8, T9 and T10 , L4 vertebral bodies. Bony metastatic disease not excluded. Chronic nondisplaced fracture deformity of right posterior T11 vertebral body, lytic lesion. - Dr. Rosenberg evaluated the patient advised to order bone scan, CT chest abdomen pelvis and brain MRI without contrast along with CA 27.29 - CT chest abdomen pelvis showed multiple lytic osseous lesions throughout the thoracolumbar spine, pelvis and in the bilateral ribs. There is asymmetric compression deformity along the left side of the L4 vertebral body compatible with a pathologic fracture. There are other areas of cortical disruption, notably in the pelvis and patchy subsolid and ground-glass opacities in the right lung, the largest in the posterior right lower lobe measuring 1.6 cm. - advised outpatient follow up after finishing all imaging & lab studies - Dr Rosenberg the advised she may need biopsy if not done at [place] # Hypertension # Atrial fibrillation with RVR secondary hypercoagulable state # ? acute on chronic diastolic CHF - currently on telemetry unit - patient is on bisoprolol, Lovenox, nifedipine 30 mg - discontinued Pradaxa and Lasix - consulted cardiology for further evaluation - elevated BNP - Completed echocardiogram which shows LVEF 55%, RVSP 33 mmHg, scleral calcification and aortic valve. # right lower extremity DVT -continue Lovenox -evident on venous Doppler # Hyperlipidemia - currently on Lipitor Lovenox for now Protonix Renal diet Reconciled home meds Musculoskeletal Physiotherapist consulted for discharge planning Case management discussed with Dr. Stevenson, patient and nurse Plan discussed with: Patient, Other (Nurse) Addendum Addendum Addendum I was physically present for the bet[place]court portions of the service provided to patient by THE RESIDENT. I have reviewed the documentation, discussed the case with resident and agree with the resident's documentation except as noted. Also the patient's clinical case was discussed with the patient's nurse. This medical document was created using an electronic medical record system with computerized dictation system. Although this document has been carefully reviewed, there might still be some phonetic and typographical errors. These areas are purely typographical due to imperfections of the software programs, and do not reflect any compromise in the patient's medical care. Late signature. Date of Service: Apr 21, 2024 Billing Provider: JEM STEVENSON MD Common Visit Codes: [id number] INP/OBS CARE(HIGH) ANUM CARABALLO RESIDENT Apr 21, 2024 11:28 JEM STEVENSON MD Apr 22, 2024 07:52
--- NOTE | 2024-04-21 13:46 | DVH ---
CT STROKE CTH INDICATION: Code stroke COMPARISON: CT HEAD WITHOUT CONTRAST on DOS: 04/17/24 ; MRI brain 04/18/2024 TECHNIQUE: CT of the head without intravenous contrast. RADIATION DOSE: CTDIvol: 58.4 mGy, DLP: 936.14 mGy*cm FINDINGS: There is no evidence of acute intracranial hemorrhage, extra-axial collection, midline shift, hernia tion or hydrocephalus. Encephalomalacia in the left MCA territory involving the frontal, parietal, and temporal lobes. No ev idence of significant interval change compared to CT on 04/17/2024. Mild to moderate cerebral atrophy. [id number] periventricular hypoattenuation is nonspecific b ut commonly due to chronic microvascular ischemia. Atherosclerosis is noted in the V4 vertebral linda cami and cavernous ICAs. Trace mucosal thickening in the left maxillary sinus. Small bilateral mastoid effusions are unchanged . Orbits are unremarkable. Calvarium is intact. IMPRESSION: 1. No evidence of intracranial hemorrhage. 2. 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 No evidence of significant int erval change from 04/17/2024. 3. Imyc-ny-bwvbisdp cerebral atrophy and chronic microvascular ischemia. Critical Result: Stroke Alert Findings discussed with FALGUNI Elizabeth, at 04/21/2024 01:43 PM, and acknowledged receipt and understanding of the findings.
[2024-04-21] MEDS: MAGNESIUM SULFATE 1GM/100ML 100 ML IV SCH (15:09)
--- NOTE | 2024-04-21 18:09 | DVHPN2 ---
Progress Note - Dictate Date Seen: Apr 21, 2024 Medical Necessity Reason Pt with a Central, PICC or Fol: No Subjective Patient seen earlier this afternoon denies complaint vital signs Vital Sign Date Time Temp Pulse Resp B/P (MAP) Pulse Ox O2 Delivery O2 Flow Rate FiO2 04/21/24 17:00 98.8 127 20 131/79 (96) 95 98.8 04/21/24 08:25 Room Air* 0 21 Total Intake and Output 04/20/24 04/20/24 04/21/24 15:00 23:00 07:00 Intake Total 240 ml 670 ml 400 ml Output Total 300 ml 675 ml Balance 240 ml 370 ml -275 ml medications Current Medications Medications Dose Ordered Sig/Edmundo Route Start Time Stop Time Status Last Admin Dose Admin Nitroglycerin 0.4 mg Q5MINP PRN SL 04/17/24 23:15 Morphine Sulfate 2 mg Q30M PRN IV 04/17/24 23:15 Nifedipine 30 mg DAILY PO 04/18/24 10:00 04/21/24 09:58 30 MG Tacrolimus 5 mg BID PO 04/18/24 10:00 04/21/24 09:57 5 MG Prednisone 5 mg DAILY PO 04/18/24 10:00 04/21/24 09:59 5 MG Atorvastatin Calcium 20 mg HS PO 04/18/24 22:00 04/20/24 22:44 20 MG Ondansetron HCl 4 mg Q4HP PRN IV 04/17/24 23:15 04/20/24 18:55 4 MG Acetaminophen 650 mg Q6HP PRN PO 04/17/24 23:15 Hold Enoxaparin Sodium 80 mg DAILY SC 04/19/24 10:00 04/21/24 09:59 80 MG Metoprolol Tartrate 25 mg BID PO 04/18/24 22:00 04/21/24 09:58 25 MG Trazodone HCl 50 mg HS PO 04/19/24 22:00 04/20/24 22:43 50 MG Sodium Chloride 1,000 ml @ 125 mls/hr Q8H IV 04/19/24 13:00 04/21/24 05:00 125 MLS/HR Ceftriaxone Sodium 50 ml @ 100 mls/hr DAILY@09 IV 04/20/24 09:00 04/21/24 09:31 100 MLS/HR Morphine Sulfate 1 mg Q4HP PRN IV 04/20/24 10:00 04/20/24 16:53 1 MG objective Gen: nad heent: nc/at, mmm lungs: cta anteriorly cvs: no rub abd: soft, bowel sounds audible ext: no edema laboratory and microbiology Laboratory Tests 04/21/24 06:49 Test 04/21/24 06:49 Range/Units Serum Glucose 81 74-106 mg/dL Assessment/Plan Acute injury in renal transplant Baseline transplant function is unknown Breast cancer with metastasis to the bone and spine Atrial fibrillation Hypertension - VIJAY of kidney allograft continues to improve - Trough Tacrolimus level appropriate, will continue Plan discussed with: Patient EDIS HART MD Apr 21, 2024 18:09
[2024-04-22] VITALS (8 sets, daily range): BP systolic 137–151; BP diastolic 87–97; PULSE 120–129; RESP 14–19; TEMP 97.7–98.3; O2SAT 92–96
[2024-04-22 06:36] LABS: Basophils # (auto) 0 10 ^3/uL (0-0.2); Basophils % (auto) 0.1 % (0.0-2.0); Eosinophils # (auto) 0 10 ^3/uL (0-0.8); Eosinophils % (auto) 0.5 % (0.0-7.0); Hematocrit 27.3 % (36.0-46.0); Hemoglobin 8.9 g/dL (12.2-16.2); Lymphocytes # (auto) 0.5 10 ^3/uL (0.4-5.4); Lymphocytes % (auto) 5.9 % (10.0-50.0); Mean Corpuscular Hemoglobin 27.5 pg (28.0-32.0); Mean Corpuscular Hgb Conc. 32.6 g/dL (32.0-36.0); Mean Corpuscular Volume 84.2 fL (80.0-100.0); Monocytes # (auto) 0.5 10 ^3/uL (0-1.3); Monocytes % (auto) 5.6 % (0.0-12.0); Neutrophils # (auto) 8.1 10 ^3/uL (1.6-8.6); Neutrophils % (auto) 87.9 % (37.0-80.0); Platelet Count (auto) 153 10^3/uL (140-450); Red Blood Cells 3.24 10^6/uL (4.0-5.20); Red Cell Distribution Width 20.1 % (11.8-14.3); White Blood Cell 9.2 10^3/uL (4.4-10.8)
[2024-04-22 06:43] LABS: Potassium 4.1 mmol/L (3.5-5.1); Sodium 140 mmol/L (136-145)
[2024-04-22 06:44] LABS: Anion Gap 11 (5-15)
[2024-04-22 06:50] LABS: BUN/Creatinine Ratio 10.2 (10.0-20.0); Blood Urea Nitrogen 26 mg/dL (9-23); Calcium 10.7 mg/dL (8.7-10.4); Carbon Dioxide 19 mmol/L (20-31); Chloride 110 mmol/L (98-107); Glucose 90 mg/dL (74-106)
--- NOTE | 2024-04-22 08:40 | DVHINCON2 ---
Date of service: Apr 22, 2024 History of Present Illness -year-old female with a PMH of HTN, HLD, AFib, breast cancer status post resection, bone cancer, renal and liver transplant presented to the ED accompanied by niece with the chief complaints of generalized weakness, confused and dehydration fo pt appears to have AFL on tele and has occlusive RLE DVT. pt is non ambulatory x 2 months now Past Medical History reviewed Family History: Patient reports no known family medical history. Allergies: Coded Allergies: APARNA Inhibitors (Verified Allergy, Unknown, 04/18/24) Acetaminophen (Verified Allergy, Unknown, 04/18/24) Home Meds Reported Medications Tacrolimus (Tacrolimus) 5 Mg Cap, 5 MG PO, CAP 04/18/24 Bisoprolol Fumarate (Bisoprolol Fumarate) 5 Mg Tab, 1 TAB PO DAILY, #30 TAB 5 Refills 04/18/24 Losartan Potassium (Losartan Potassium) 100 Mg Tab, 1 TAB PO DAILY, #30 TAB 5 Refills 04/18/24 Prednisone (Prednisone) 5 Mg Alfredito, 5 MG PO, PACK 04/18/24 Calcitriol (Rocaltrol) 0.25 Mcg Cap, 1 CAP PO DAILY, #30 CAP 5 Refills 04/18/24 Atorvastatin Calcium (ATORVASTATIN CALCIUM) 10 Mg Tab, 1 TAB PO DAILY, #30 TAB 5 Refills 04/18/24 Hydromorphone HCl (Hydromorphone HCl ER) 8 Mg Tab, 8 MG PO, TAB 04/18/24 Trazodone Hcl (Trazodone Hcl) 100 Mg Tab, 50 MG PO, TAB 04/18/24 Lorazepam (Lorazepam) 2 Mg Tab, 1 TAB PO TID, #90 TAB 04/18/24 Ondansetron HCl (Ondansetron Hydrochloride) 8 Mg Tab, 8 MG PO, TAB 04/18/24 Morphine Sulfate (Morphine Sulfate) 100 Mg/5 Ml Cee, 20 MG GT, ML 04/18/24 Discontinued Reported Medications Cinacalcet Hydrochloride (Sensipar) 30 Mg Tab, 50 MG PO, TAB 04/18/24 Current Medications Current Medications Medications (Trade) Dose Ordered Sig/Edmundo Route PRN Reason Start Time Stop Time Status Last Admin Magnesium Sulfate/ Dextrose 100 ml @ 100 mls/hr Q1HR IV 04/21/24 13:00 04/21/24 14:59 DC 04/21/24 16:21 Review of Systems 10 pt ros otherwise negative Vital Signs Vital Signs Date Time Temp Pulse Resp B/P (MAP) Pulse Ox O2 Delivery O2 Flow Rate FiO2 04/22/24 05:00 98.3 127 16 143/87 (105) 92 98.3 04/21/24 20:00 Room Air* 0 21 Physical Exam nad s1 s2 irregular ctab soft nt/nd RLE +1 edema Labs/Diagnostic Data Labs Test 04/22/24 04:58 04/21/24 06:49 04/18/24 23:34 04/18/24 10:27 Range/Units White Blood Count 9.2 4.4-10.8 10^3/uL Red Blood Count 3.24 L 4.0-5.20 10^6/uL Hemoglobin 8.9 L 12.2-16.2 g/dL Hematocrit 27.3 L 36.0-46.0 % Mean Corpuscular Volume 84.2 80.0-100.0 fL Mean Corpuscular Hemoglobin 27.5 L 28.0-32.0 pg Mean Corpuscular Hemoglobin Concent 32.6 32.0-36.0 g/dL Red Cell Distribution Width 20.1 H 11.8-14.3 % Platelet Count 153 140-450 10^3/uL Mean Platelet Volume 7.9 6.9-10.8 fL Neutrophils (%) (Auto) 87.9 H 37.0-80.0 % Lymphocytes (%) (Auto) 5.9 L 10.0-50.0 % Monocytes (%) (Auto) 5.6 0.0-12.0 % Eosinophils (%) (Auto) 0.5 0.0-7.0 % Basophils (%) (Auto) 0.1 0.0-2.0 % Neutrophils # (Auto) 8.1 1.6-8.6 10 ^3/uL Lymphocytes # (Auto) 0.5 0.4-5.4 10 ^3/uL Monocytes # (Auto) 0.5 0-1.3 10 ^3/uL Eosinophils # (Auto) 0 0-0.8 10 ^3/uL Basophils # (Auto) 0 0-0.2 10 ^3/uL Nucleated Red Blood Cells 0.0 % Sodium Level 140 136-145 mmol/L Potassium Level 4.1 3.5-5.1 mmol/L Chloride Level 110 H 98-107 mmol/L Carbon Dioxide Level 19 L 20-31 mmol/L Anion Gap 11 5-15 Blood Urea Nitrogen 26 H 9-23 mg/dL Creatinine 2.55 H 0.550-1.02 mg/dL Glomerular Filtration Rate Calc 19 >90 mL/min BUN/Creatinine Ratio 10.2 10.0-20.0 Serum Glucose 90 74-106 mg/dL Calcium Level 10.7 H 8.7-10.4 mg/dL Prothrombin Time 11.8 9.3-11.8 sec Prothrombin Time INR 1.12 0.9-1.15 Activated Partial Thromboplast Time 30.5 24.5-34.5 SEC Phosphorus Level 3.1 2.4-5.1 mg/dL Magnesium Level 1.4 L 1.6-2.6 mg/dL Total Bilirubin 0.6 0.2-1.0 mg/dL Aspartate Amino Transferase (AST) 11 L 13-40 U/L Alanine Aminotransferase (ALT) < 9 7-40 U/L Alkaline Phosphatase 123 H 46-116 U/L Total Protein 5.2 L 5.7-8.2 g/dL Albumin 3.1 L 3.2-4.8 g/dL Urine Osmolality 434 mOsm/kg Urine Creatinine 128.15 H 30.0-125.0 mg/dL Urine Protein/Creatinine Ratio 0.70 Urine Sodium 60 40-220 mmol/L Urine Potassium 36 12-62 mmol/L Urine Total Protein 89.3 H 1-14 mg/dL Urine Opiates Screen Pos NEGATIVE Urine Fentanyl Screen Pos NEGATIVE Urine Barbiturates Screen Neg NEGATIVE Urine Phencyclidine Screen Neg NEGATIVE Urine Amphetamines Screen Neg NEGATIVE Urine Benzodiazepines Screen Neg NEGATIVE Urine Cocaine Screen Neg NEGATIVE Urine Cannabinoids Screen Neg NEGATIVE CA 27.29 13.5 0.0-38.6 U/mL Vitamin B12 Level 1078 H 211-911 pg/mL Vitamin D 25-Hydroxy 49.9 30.0-100 ng/mL Test 04/18/24 05:10 04/18/24 00:35 04/17/24 23:31 04/17/24 19:15 Range/Units Hemoglobin A1c 5.6 <5.7 % A1C Troponin I High Sensitivity 14 </=34 ng/L Urine Color Yellow Yellow Urine Clarity Clear Clear Urine pH 5.0 5.0-9.0 Urine Specific Wilson 1.015 1.001-1.035 Urine Protein Trace H Negative Urine Ketones Negative Negative Urine Blood Negative Negative /uL Urine Nitrite Negative Negative Urine Bilirubin Negative Negative Urine Urobilinogen Normal Negative mg/dL Urine Leukocyte Esterase Negative Negative /uL Urine RBC <1 0 - 4 /hpf Urine WBC 1 0 - 5 /hpf Urine Squamous Epithelial Cells Few <5 /hpf Urine Bacteria Few H None Seen /hpf Urine Glucose Normal Normal mg/dL Creatine Kinase 22 L 34-145 U/L Tacrolimus (LC/MS/MS) 5.1 . ng/mL Lactic Acid Level 1.2 0.4-2.0 mmol/L Ammonia < 10 L 11-32 umol/L B-Type Natriuretic Peptide 514.86 0-100 pg/mL Thyroid Stimulating Hormone (TSH) 2.58 0.55-4.78 uIU/mL Microbiology Date/Time Source Procedure Growth Status 04/17/24 23:31 Blood Blood Culture - Preliminary NO GROWTH AFTER 72 HOURS OF INCUBATION. Resulted Assessment breast cancer mets hx of transplant aflutter occlusive dvt AMS htn obesity Plan/Recommendation cont anticoag for dvt and for afib hx would avoid procedure given comorbidities and non ambulatory status rate control patient, consider bb and amiodarone po Plan discussed with: Patient, Other (md ) DYLAN JORGENSEN MD Apr 22, 2024 08:40
--- NOTE | 2024-04-22 13:34 | DVHPN2 ---
Progress Note - Dictate Date Seen: Apr 22, 2024 Has the PT tested + for MRSA If YES, has PT been informed?: Yes Medical Necessity Reason Pt with a Central, PICC or Fol: No Subjective Patient does have some back pains. She is overall comfortable. Her [id number] is by her bedside. vital signs Vital Sign Date Time Temp Pulse Resp B/P (MAP) Pulse Ox O2 Delivery O2 Flow Rate FiO2 04/22/24 09:45 129 146/95 04/22/24 08:14 Room Air* 0 21 04/22/24 05:00 98.3 16 92 98.3 Total Intake and Output 04/21/24 04/21/24 04/22/24 15:00 23:00 07:00 Intake Total 170 ml 950 ml 350 ml Output Total 350 ml 1100 ml Balance 170 ml 600 ml -750 ml medications Current Medications Medications Dose Ordered Sig/Edmundo Route Start Time Stop Time Status Last Admin Dose Admin Nitroglycerin 0.4 mg Q5MINP PRN SL 04/17/24 23:15 Morphine Sulfate 2 mg Q30M PRN IV 04/17/24 23:15 Nifedipine 30 mg DAILY PO 04/18/24 10:00 04/22/24 09:45 30 MG Tacrolimus 5 mg BID PO 04/18/24 10:00 04/22/24 09:45 5 MG Prednisone 5 mg DAILY PO 04/18/24 10:00 04/22/24 09:44 5 MG Atorvastatin Calcium 20 mg HS PO 04/18/24 22:00 04/21/24 22:46 20 MG Ondansetron HCl 4 mg Q4HP PRN IV 04/17/24 23:15 04/22/24 09:26 4 MG Acetaminophen 650 mg Q6HP PRN PO 04/17/24 23:15 Hold Enoxaparin Sodium 80 mg DAILY SC 04/19/24 10:00 04/22/24 09:45 80 MG Metoprolol Tartrate 25 mg BID PO 04/18/24 22:00 04/22/24 09:45 25 MG Trazodone HCl 50 mg HS PO 04/19/24 22:00 04/21/24 22:45 50 MG Sodium Chloride 1,000 ml @ 125 mls/hr Q8H IV 04/19/24 13:00 04/21/24 04:00 125 MLS/HR Ceftriaxone Sodium 50 ml @ 100 mls/hr DAILY@09 IV 04/20/24 09:00 04/22/24 09:42 100 MLS/HR Morphine Sulfate 1 mg Q4HP PRN IV 04/20/24 10:00 04/20/24 16:53 1 MG objective Moderately built and nourished, in no acute distress, alert and oriented. Somewhat lethargic. Slow to respond but seems to comprehend No jaundice Head and neck: Unremarkable for any masses or neck nodes. No conjunctival or mucosal hemorrhage Lungs: Clear Cardiovascular: S1-S2 heard well Abdomen: No organomegaly, tenderness or ascites. Bowel sounds are present. Extremities: No clubbing edema cyanosis or calf tenderness. Skin: Unremarkable for petechia purpura ecchymosis Lymphadenopathy: None Neurological exam: No focal deficit Left mastectomy healed scar Right breast: Unremarkable for masses tenderness discharge Axillae: Unremarkable She is sensitive to touch on the right thigh right knee in the right calf area with no significant swelling laboratory and microbiology Laboratory Tests 04/22/24 04:58 Test 04/22/24 04:58 Range/Units Serum Glucose 90 74-106 mg/dL Assessment/Plan 1. History of left modified radical mastectomy in 2022 at [facility] without any adjuvant treatment. 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 No definite evidence of metastatic disease. This is done without IV contrast. CT of the chest abdomen pelvis without IV contrast showed multiple lytic osseous lesions throughout the thoracolumbar spine, pelvis and in the bilateral ribs. There is a pathological fracture at L4. Patchy subsolid and ground-glass opacities in the right lung, the largest in the posterior right lower lobe measuring 1.6 cm, could be infectious/inflammatory and Mets could not be excluded No other pathological lymphadenopathy in the chest abdomen pelvis. Fibroid uterus. Transplant kidney in the right lower abdomen which is unremarkable white count 9.2 hemoglobin 8.9 platelets 153 GFR 19. Alkaline phosphatase 123 total protein 5.2 albumin 3.1 CA 27-29: 13.5 2. History of kidney and liver transplant in 2016 and takes calcitriol, tacrolimus and prednisone 3. Hypertension 4. Hyperlipidemia 5. Atrial fibrillation history 6. Renal insufficiency Plan: Patient could be followed as an outpatient with me Once the records are available from [facility] then I could discuss with her about the treatment options. He is She is a poor candidate for systemic chemotherapy Plan discussed with: Patient MAHAMED JOSEPH MD Apr 22, 2024 13:34
--- NOTE | 2024-04-22 15:38 | DVHPNRES ---
Progress Note Date Seen: Apr 22, 2024 Resident Creating Document: ANUM CARABALLO RESIDENT Has the PT tested + for MRSA If YES, has PT been informed?: Yes Medical Necessity Reason Pt with a Central, PICC or Fol: No Subjective Review of Systems NÉSTOR DAVENPORT is a 74-year-old female with a PMH of HTN, HLD, AFib, breast cancer status post resection, bone cancer, renal and liver transplant presented to the ED accompanied by niece with the chief complaints of generalized weakness, confused and dehydration for past couple of weeks. Patient seen and examined at the bedside. Patient reported no new complaints and improvement in her symptoms since admission. Patient is still confused. Once records are available from [facility], she can follow up with Dr. Rosenberg an outpatient Initiated discharge planning, consulted social welfare clerk for home health with physical therapy and hospital bed at home. Objective vital signs Vital Sign Date Time Temp Pulse Resp B/P (MAP) Pulse Ox O2 Delivery O2 Flow Rate FiO2 04/22/24 14:38 125 147/93 04/22/24 08:14 Room Air* 0 21 04/22/24 05:00 98.3 16 92 98.3 Total Intake and Output 04/21/24 04/21/24 04/22/24 15:00 23:00 07:00 Intake Total 170 ml 950 ml 350 ml Output Total 350 ml 1100 ml Balance 170 ml 600 ml -750 ml medications Current Medications Medications Dose Ordered Sig/Edmundo Route Start Time Stop Time Status Last Admin Dose Admin Nitroglycerin 0.4 mg Q5MINP PRN SL 04/17/24 23:15 Morphine Sulfate 2 mg Q30M PRN IV 04/17/24 23:15 Nifedipine 30 mg DAILY PO 04/18/24 10:00 04/22/24 09:45 30 MG Tacrolimus 5 mg BID PO 04/18/24 10:00 04/22/24 09:45 5 MG Prednisone 5 mg DAILY PO 04/18/24 10:00 04/22/24 09:44 5 MG Atorvastatin Calcium 20 mg HS PO 04/18/24 22:00 04/21/24 22:46 20 MG Ondansetron HCl 4 mg Q4HP PRN IV 04/17/24 23:15 04/22/24 09:26 4 MG Acetaminophen 650 mg Q6HP PRN PO 04/17/24 23:15 Hold Enoxaparin Sodium 80 mg DAILY SC 04/19/24 10:00 04/22/24 09:45 80 MG Metoprolol Tartrate 25 mg BID PO 04/18/24 22:00 04/22/24 09:45 25 MG Trazodone HCl 50 mg HS PO 04/19/24 22:00 04/21/24 22:45 50 MG Sodium Chloride 1,000 ml @ 125 mls/hr Q8H IV 04/19/24 13:00 04/22/24 15:13 125 MLS/HR Ceftriaxone Sodium 50 ml @ 100 mls/hr DAILY@09 IV 04/20/24 09:00 04/22/24 09:42 100 MLS/HR Morphine Sulfate 1 mg Q4HP PRN IV 04/20/24 10:00 04/20/24 16:53 1 MG Examination Pt is lying on bed ( Bed bound) General Appearance: confused but, Oriented X1, Cooperative, HEENT: Atraumatic, Mucous membranes dry Respiratory: Clear to auscultation, Normal air movement, No added sounds Cardiovascular: Regular rate, Normal S1, Normal S2, No murmurs Abdominal: Active bowel sounds, Soft, no distention, no tenderness Extremities: right lower extremity tenderness but no edema Skin: No Significant rash, except past surgical scars Neuro: limited exam due to patient status Normal speech, sensorimotor deficits none Psych/Mental Status: Mental status NL, Mood NL Nurse was there as sharperone during examination laboratory and microbiology Laboratory Tests 04/22/24 04:58 Test 04/22/24 04:58 Range/Units Serum Glucose 90 74-106 mg/dL Microbiology Date/Time Source Procedure Growth Status 04/17/24 23:31 Blood Blood Culture - Preliminary NO GROWTH AFTER 72 HOURS OF INCUBATION. Resulted Labs and/or images reviewed: Labs reviewed by me, Image(s) reviewed by me Problem List/Assessment/Plan Problem List/Assessment/Plan # acute metabolic or toxic encephalopathy # dehydration # acute renal failure likely due to VMN vs CKD # History of kidney and liver transplant in 2016 and takes calcitriol, tacrolimus and prednisone - CT of the brain without contrast showed chronic changes with encephalomalacia - currently hydrating 125 mL/hour - kidney ultrasound showed mild right renal pelviectasis and nonspecific cortical thinning left kidney - Nephrology sustainability consultant evaluated the patient, advised is to continue IVF and strict I and Os, to continue prednisolone and tacrolimus. - currently on tacrolimus and prednisone # History of left modified radical mastectomy in 2022 at [facility] without any adjuvant treatment # Bone cancer lytic appearing lesions in T4,T5, T8, T9 and T10 , L4 # ?lung mass - CT thoracic spine and lumbar spine showed lytic appearing lesions in T4,T5, T8, T9 and T10 , L4 vertebral bodies. Bony metastatic disease not excluded. Chronic nondisplaced fracture deformity of right posterior T11 vertebral body, lytic lesion. - Dr. Rosenberg evaluated the patient advised to order bone scan, CT chest abdomen pelvis and brain MRI without contrast along with CA 27.29 - CT chest abdomen pelvis showed multiple lytic osseous lesions throughout the thoracolumbar spine, pelvis and in the bilateral ribs. There is asymmetric compression deformity along the left side of the L4 vertebral body compatible with a pathologic fracture. There are other areas of cortical disruption, notably in the pelvis and patchy subsolid and ground-glass opacities in the right lung, the largest in the posterior right lower lobe measuring 1.6 cm. - advised outpatient follow up after finishing all imaging & lab studies - Once records are available from [facility], she can follow up with Dr. Rosenberg an outpatient - Initiated discharge planning, consulted social welfare clerk for home health with physical therapy and hospital bed at home. # Hypertension # Atrial fibrillation with RVR secondary hypercoagulable state # ? Acute on chronic diastolic CHF - currently on telemetry unit - patient is on bisoprolol, Lovenox, nifedipine 30 mg - discontinued Pradaxa and Lasix - consulted cardiology for further evaluation - elevated BNP - Completed echocardiogram which shows LVEF 55%, RVSP 33 mmHg, scleral calcification and aortic valve. # Right lower extremity DVT -continue Lovenox -evident on venous Doppler # Hyperlipidemia - currently on Lipitor Lovenox for now Protonix Renal diet Reconciled home meds Goals of care discussed with the patient and family for more than 27 minutes: Full code status Case management discussed with Dr. Merrill, patient, Family and nurse Supervisor [employer] consulted for discharge planning Initiated discharge planning, consulted social welfare clerk for home health with physical therapy and hospital bed at home. Plan discussed with: Patient, Other (family and RN) My Orders My Orders Orders - ANUM CARABALLO Procedure Category Date Status Time * Supervisor [employer] CONS 04/22/24 Transmitted Consult Discharge DISCHARGE 04/22/24 Transmitted 15:11 ANUM CARABALLO Apr 22, 2024 15:38
[2024-04-23] VITALS (8 sets, daily range): BP systolic 111–154; BP diastolic 71–95; PULSE 127–132; RESP 18–21; TEMP 97.5–98.4; O2SAT 91–98
[2024-04-23 06:42] LABS: Basophils # (auto) 0 10 ^3/uL (0-0.2); Basophils % (auto) 0.3 % (0.0-2.0); Eosinophils # (auto) 0.1 10 ^3/uL (0-0.8); Eosinophils % (auto) 0.9 % (0.0-7.0); Hematocrit 28.5 % (36.0-46.0); Hemoglobin 9.3 g/dL (12.2-16.2); Lymphocytes # (auto) 0.9 10 ^3/uL (0.4-5.4); Lymphocytes % (auto) 9.7 % (10.0-50.0); Mean Corpuscular Hemoglobin 26.8 pg (28.0-32.0); Mean Corpuscular Hgb Conc. 32.6 g/dL (32.0-36.0); Mean Corpuscular Volume 82.1 fL (80.0-100.0); Monocytes # (auto) 0.5 10 ^3/uL (0-1.3); Monocytes % (auto) 5.9 % (0.0-12.0); Neutrophils # (auto) 7.3 10 ^3/uL (1.6-8.6); Neutrophils % (auto) 83.2 % (37.0-80.0); Platelet Count (auto) 168 10^3/uL (140-450); Red Blood Cells 3.48 10^6/uL (4.0-5.20); White Blood Cell 8.7 10^3/uL (4.4-10.8)
[2024-04-23 06:58] LABS: Sodium 144 mmol/L (136-145)
[2024-04-23 06:59] LABS: Anion Gap 15 (5-15); Carbon Dioxide 21 mmol/L (20-31)
[2024-04-23 07:04] LABS: Glucose 91 mg/dL (74-106)
[2024-04-23 07:06] LABS: Blood Urea Nitrogen 28 mg/dL (9-23); Calcium 10.7 mg/dL (8.7-10.4); Chloride 108 mmol/L (98-107)
[2024-04-23] MEDS: METOPROLOL TARTRATE 50 MG TAB PO SCH (10:08)
--- NOTE | 2024-04-23 12:58 | DVHPN2 ---
Progress Note Date Seen: Apr 23, 2024 Has the PT tested + for MRSA If YES, has PT been informed?: Yes Medical Necessity Reason Pt with a Central, PICC or Fol: No Subjective Patient reports: Feels better Objective vital signs Vital Sign Date Time Temp Pulse Resp B/P (MAP) Pulse Ox O2 Delivery O2 Flow Rate FiO2 04/23/24 10:11 130 137/84 04/23/24 09:00 97.5 21 97 97.5 04/23/24 07:36 Room Air* 0 21 Total Intake and Output 04/22/24 04/22/24 04/23/24 14:59 22:59 06:59 Intake Total 50 ml 1970 ml 275 ml Output Total 650 ml 1700 ml Balance 50 ml 1320 ml -1425 ml medications Current Medications Medications Dose Ordered Sig/Edmundo Route Start Time Stop Time Status Last Admin Dose Admin Nitroglycerin 0.4 mg Q5MINP PRN SL 04/17/24 23:15 Morphine Sulfate 2 mg Q30M PRN IV 04/17/24 23:15 Nifedipine 30 mg DAILY PO 04/18/24 10:00 04/23/24 09:03 30 MG Tacrolimus 5 mg BID PO 04/18/24 10:00 04/23/24 09:02 5 MG Prednisone 5 mg DAILY PO 04/18/24 10:00 04/23/24 09:03 5 MG Atorvastatin Calcium 20 mg HS PO 04/18/24 22:00 04/22/24 21:40 20 MG Ondansetron HCl 4 mg Q4HP PRN IV 04/17/24 23:15 04/22/24 09:26 4 MG Acetaminophen 650 mg Q6HP PRN PO 04/17/24 23:15 Hold Enoxaparin Sodium 80 mg DAILY SC 04/19/24 10:00 04/23/24 09:03 80 MG Trazodone HCl 50 mg HS PO 04/19/24 22:00 04/22/24 21:39 50 MG Sodium Chloride 1,000 ml @ 125 mls/hr Q8H IV 04/19/24 13:00 04/22/24 15:13 125 MLS/HR Ceftriaxone Sodium 50 ml @ 100 mls/hr DAILY@09 IV 04/20/24 09:00 04/23/24 09:01 100 MLS/HR Morphine Sulfate 1 mg Q4HP PRN IV 04/20/24 10:00 04/20/24 16:53 1 MG Metoprolol Tartrate 50 mg BID PO 04/23/24 10:00 04/23/24 10:08 50 MG Examination: GENERAL:Abnormal, HEENT:Abnormal, LUNGS:Abnormal, CVS:Abnormal, ABDOMEN:Abnormal laboratory and microbiology Laboratory Tests 04/23/24 05:27 04/23/24 05:23 Test 04/23/24 05:23 Range/Units Serum Glucose 91 74-106 mg/dL Microbiology Date/Time Source Procedure Growth Status 04/17/24 23:31 Blood Blood Culture - Final NO GROWTH AFTER 5 DAYS OF INCUBATION. Complete Problem List/Assessment/Plan Problem List/Assessment/Plan dvt cancer AMS non ambulatory ckd anemia HTN cont anticoag for dvt/ afib flutter rate control patient for now Plan discussed with: Patient Dietary Evaluation Review Comments: Continue current plan of care Expected Outcomes/Goals: F/U in 3-5 days Date of Service: Apr 23, 2024 Billing Provider: DYLAN JORGENSEN MD Common Visit Codes: NOT BILLABLE DYLAN JORGENSEN MD Apr 23, 2024 12:58
[2024-04-23] MEDS ORDERED: MET50T PO (13:59)
[2024-04-23] MEDS ORDERED: ACET-1882 PO (13:59)
[2024-04-23] MEDS ORDERED: TACR5CAP15 OR (13:59)
[2024-04-23] MEDS ORDERED: CEPH250C PO (13:59)
[2024-04-23] MEDS ORDERED: NIFE1TAB31 PO (13:59)
[2024-04-23] MEDS ORDERED: APIX2.5T PO (14:00)
--- NOTE | 2024-04-23 15:37 | DVHPNRES ---
Progress Note Date Seen: Apr 23, 2024 Resident Creating Document: ANUM CARABALLO RESIDENT Has the PT tested + for MRSA If YES, has PT been informed?: Yes Medical Necessity Reason Pt with a Central, PICC or Fol: No Subjective Review of Systems NÉSTOR DAVENPORT is a 74-year-old female with a PMH of HTN, HLD, AFib, breast cancer status post resection, bone cancer, renal and liver transplant presented to the ED accompanied by niece with the chief complaints of generalized weakness, confused and dehydration for past couple of weeks. Patient seen and examined at the bedside. Patient reported no new complaints and improvement in her symptoms since admission. Patient did alert but oriented to x2. Initiated discharge planning, consulted social services manager, Spoke with the family today, deciding between home health and hospice. Patient reports: No new complaints Changes from previous H/P or p: No Changes Objective vital signs Vital Sign Date Time Temp Pulse Resp B/P (MAP) Pulse Ox O2 Delivery O2 Flow Rate FiO2 04/23/24 13:00 97.8 128 19 131/79 (96) 98 97.8 04/23/24 07:36 Room Air* 0 21 Total Intake and Output 04/22/24 04/22/24 04/23/24 15:00 23:00 07:00 Intake Total 50 ml 1970 ml 275 ml Output Total 650 ml 1700 ml Balance 50 ml 1320 ml -1425 ml medications Current Medications Medications Dose Ordered Sig/Edmundo Route Start Time Stop Time Status Last Admin Dose Admin Nitroglycerin 0.4 mg Q5MINP PRN SL 04/17/24 23:15 Morphine Sulfate 2 mg Q30M PRN IV 04/17/24 23:15 Nifedipine 30 mg DAILY PO 04/18/24 10:00 04/23/24 09:03 30 MG Tacrolimus 5 mg BID PO 04/18/24 10:00 04/23/24 09:02 5 MG Prednisone 5 mg DAILY PO 04/18/24 10:00 04/23/24 09:03 5 MG Atorvastatin Calcium 20 mg HS PO 04/18/24 22:00 04/22/24 21:40 20 MG Ondansetron HCl 4 mg Q4HP PRN IV 04/17/24 23:15 04/22/24 09:26 4 MG Acetaminophen 650 mg Q6HP PRN PO 04/17/24 23:15 Hold Enoxaparin Sodium 80 mg DAILY SC 04/19/24 10:00 04/23/24 09:03 80 MG Trazodone HCl 50 mg HS PO 04/19/24 22:00 04/22/24 21:39 50 MG Sodium Chloride 1,000 ml @ 125 mls/hr Q8H IV 04/19/24 13:00 04/23/24 13:13 125 MLS/HR Ceftriaxone Sodium 50 ml @ 100 mls/hr DAILY@09 IV 04/20/24 09:00 04/23/24 09:01 100 MLS/HR Morphine Sulfate 1 mg Q4HP PRN IV 04/20/24 10:00 04/20/24 16:53 1 MG Metoprolol Tartrate 50 mg BID PO 04/23/24 10:00 04/23/24 10:08 50 MG Examination Pt is lying on bed ( Bed bound) General Appearance: confused but, Oriented X1, Cooperative, HEENT: Atraumatic, Mucous membranes dry Respiratory: Clear to auscultation, Normal air movement, No added sounds Cardiovascular: Regular rate, Normal S1, Normal S2, No murmurs Abdominal: Active bowel sounds, Soft, no distention, no tenderness Extremities: right lower extremity tenderness but no edema Skin: No Significant rash, except past surgical scars Neuro: limited exam due to patient status Normal speech, sensorimotor deficits none Psych/Mental Status: Mental status NL, Mood NL Nurse was there as sharperone during examination laboratory and microbiology Laboratory Tests 04/23/24 05:27 04/23/24 05:23 Test 04/23/24 05:23 Range/Units Serum Glucose 91 74-106 mg/dL Microbiology Date/Time Source Procedure Growth Status 04/17/24 23:31 Blood Blood Culture - Final NO GROWTH AFTER 5 DAYS OF INCUBATION. Complete Labs and/or images reviewed: Labs reviewed by me, Image(s) reviewed by me Problem List/Assessment/Plan Problem List/Assessment/Plan # acute metabolic or toxic encephalopathy # dehydration # acute renal failure likely due to VMN vs CKD # History of kidney and liver transplant in 2016 and takes calcitriol, tacrolimus and prednisone - CT of the brain without contrast showed chronic changes with encephalomalacia - currently hydrating 125 mL/hour - kidney ultrasound showed mild right renal pelviectasis and nonspecific cortical thinning left kidney - Nephrology disaster recovery consultant evaluated the patient, advised is to continue IVF and strict I and Os, to continue prednisolone and tacrolimus. - currently on tacrolimus and prednisone # History of left modified radical mastectomy in 2022 at [facility] without any adjuvant treatment # lytic bony lesions appearing lesions in T4,T5, T8, T9 and T10 , L4 likely secondary to metastasis # ?lung mass likely secondary to metastasis - CT thoracic spine and lumbar spine showed lytic appearing lesions in T4,T5, T8, T9 and T10 , L4 vertebral bodies. Bony metastatic disease not excluded. Chronic nondisplaced fracture deformity of right posterior T11 vertebral body, lytic lesion. - Dr. Rosenberg evaluated the patient advised to order bone scan, CT chest abdomen pelvis and brain MRI without contrast along with CA 27.29 - CT chest abdomen pelvis showed multiple lytic osseous lesions throughout the thoracolumbar spine, pelvis and in the bilateral ribs. There is asymmetric compression deformity along the left side of the L4 vertebral body compatible with a pathologic fracture. There are other areas of cortical disruption, notably in the pelvis and patchy subsolid and ground-glass opacities in the right lung, the largest in the posterior right lower lobe measuring 1.6 cm. - advised outpatient follow up after finishing all imaging & lab studies - Once records are available from [facility], she can follow up with Dr. Rosenberg an outpatient - Initiated discharge planning, consulted social services manager, Spoke with the family today, deciding between home health and hospice. # Hypertension # Atrial fibrillation with RVR secondary hypercoagulable state # ? Acute on chronic diastolic CHF - currently on telemetry unit - patient is on bisoprolol, Lovenox, nifedipine 30 mg - discontinued Pradaxa and Lasix - consulted cardiology for further evaluation - elevated BNP - Completed echocardiogram which shows LVEF 55%, RVSP 33 mmHg, scleral calcification and aortic valve. - cont anticoag for dvt/ afib flutter - rate control patient for now # Right lower extremity DVT -continue Lovenox -evident on venous Doppler - cont anticoag for dvt/ afib flutter - rate control patient for now # Hyperlipidemia - currently on Lipitor Lovenox for now Protonix Renal diet Reconciled home meds Goals of care discussed with the patient and family for more than 27 minutes: Full code status Case management discussed with Dr. Merrill, patient, Family and nurse Initiated discharge planning, consulted social services manager, Spoke with the family today, deciding between home health and hospice. Plan discussed with: Patient, Other (Family & RN) My Orders My Orders Orders - ANUM CARABALLO Procedure Category Date Status Time * [employer] Dressing Supervisor CONS 04/23/24 Transmitted Consult 14:42 Dietary Evaluation Review Comments: Continue current plan of care Expected Outcomes/Goals: F/U in 3-5 days Date of Service: Apr 23, 2024 Billing Provider: RENEE MERRILL MD Common Visit Codes: [id number] INP/OBS CARE(HIGH) ANUM CARABALLO RESIDENT Apr 23, 2024 15:37 RENEE MERRILL MD Apr 24, 2024 18:02
--- NOTE | 2024-04-23 20:08 | DVHPN2 ---
Progress Note Date Seen: Apr 23, 2024 Has the PT tested + for MRSA If YES, has PT been informed?: Yes Medical Necessity Reason Pt with a Central, PICC or Fol: No Subjective Patient reports: No new complaints Review of Systems: Deferred Objective vital signs Vital Sign Date Time Temp Pulse Resp B/P (MAP) Pulse Ox O2 Delivery O2 Flow Rate FiO2 04/23/24 16:54 98.4 130 20 132/91 (105) 95 98.4 04/23/24 07:36 Room Air* 0 21 Total Intake and Output 04/22/24 04/22/24 04/23/24 15:00 23:00 07:00 Intake Total 50 ml 1970 ml 275 ml Output Total 650 ml 1700 ml Balance 50 ml 1320 ml -1425 ml medications Current Medications Medications Dose Ordered Sig/Edmundo Route Start Time Stop Time Status Last Admin Dose Admin Nitroglycerin 0.4 mg Q5MINP PRN SL 04/17/24 23:15 Morphine Sulfate 2 mg Q30M PRN IV 04/17/24 23:15 Nifedipine 30 mg DAILY PO 04/18/24 10:00 04/23/24 09:03 30 MG Tacrolimus 5 mg BID PO 04/18/24 10:00 04/23/24 09:02 5 MG Prednisone 5 mg DAILY PO 04/18/24 10:00 04/23/24 09:03 5 MG Atorvastatin Calcium 20 mg HS PO 04/18/24 22:00 04/22/24 21:40 20 MG Ondansetron HCl 4 mg Q4HP PRN IV 04/17/24 23:15 04/22/24 09:26 4 MG Acetaminophen 650 mg Q6HP PRN PO 04/17/24 23:15 Hold Enoxaparin Sodium 80 mg DAILY SC 04/19/24 10:00 04/23/24 09:03 80 MG Trazodone HCl 50 mg HS PO 04/19/24 22:00 04/22/24 21:39 50 MG Sodium Chloride 1,000 ml @ 125 mls/hr Q8H IV 04/19/24 13:00 04/23/24 13:13 125 MLS/HR Ceftriaxone Sodium 50 ml @ 100 mls/hr DAILY@09 IV 04/20/24 09:00 04/23/24 09:01 100 MLS/HR Morphine Sulfate 1 mg Q4HP PRN IV 04/20/24 10:00 04/20/24 16:53 1 MG Metoprolol Tartrate 50 mg BID PO 04/23/24 10:00 04/23/24 10:08 50 MG laboratory and microbiology Laboratory Tests 04/23/24 05:27 04/23/24 05:23 Test 04/23/24 05:23 Range/Units Serum Glucose 91 74-106 mg/dL Microbiology Date/Time Source Procedure Growth Status 04/17/24 23:31 Blood Blood Culture - Final NO GROWTH AFTER 5 DAYS OF INCUBATION. 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
[2024-04-24] VITALS (8 sets, daily range): BP systolic 102–152; BP diastolic 60–98; PULSE 125–134; RESP 18–20; TEMP 97.5–98.5; O2SAT 94–100
[2024-04-24 06:53] LABS: Albumin 3.2 g/dL (3.2-4.8); Anion Gap 10 (5-15); Aspartate Aminotransferase 20 U/L (13-40); BUN/Creatinine Ratio 8.1 (10.0-20.0); Blood Urea Nitrogen 17 mg/dL (9-23); Glucose 82 mg/dL (74-106); Potassium 3.9 mmol/L (3.5-5.1); Sodium 139 mmol/L (136-145)
[2024-04-24 07:00] LABS: Alanine Aminotransferase < 9 U/L (7-40); Alkaline Phosphatase 130 U/L (46-116); Calcium 10.7 mg/dL (8.7-10.4); Carbon Dioxide 19 mmol/L (20-31); Chloride 110 mmol/L (98-107); Total Protein 5.5 g/dL (5.7-8.2)
[2024-04-24 07:05] LABS: Basophils # (auto) 0 10 ^3/uL (0-0.2); Eosinophils # (auto) 0.1 10 ^3/uL (0-0.8); Monocytes # (auto) 0.5 10 ^3/uL (0-1.3)
[2024-04-24 07:07] LABS: Basophils % (auto) 0.1 % (0.0-2.0); Eosinophils % (auto) 0.7 % (0.0-7.0); Hematocrit 28.2 % (36.0-46.0); Lymphocytes # (auto) 0.8 10 ^3/uL (0.4-5.4); Lymphocytes % (auto) 9.5 % (10.0-50.0); Mean Corpuscular Hemoglobin 26.6 pg (28.0-32.0); Mean Corpuscular Volume 83.1 fL (80.0-100.0); Monocytes % (auto) 5.9 % (0.0-12.0); Neutrophils # (auto) 7.3 10 ^3/uL (1.6-8.6); Neutrophils % (auto) 83.8 % (37.0-80.0); Nucleated Red Blood Cells % 0.1 %; Platelet Count (auto) 168 10^3/uL (140-450); Red Blood Cells 3.39 10^6/uL (4.0-5.20); Red Cell Distribution Width 19.5 % (11.8-14.3); White Blood Cell 8.7 10^3/uL (4.4-10.8)
[2024-04-24 07:09] LABS: Bilirubin, Total 0.5 mg/dL (0.2-1.0)
--- NOTE | 2024-04-24 16:34 | DVHPN2 ---
Progress Note Date Seen: Apr 24, 2024 Has the PT tested + for MRSA If YES, has PT been informed?: Yes Medical Necessity Reason Pt with a Central, PICC or Fol: No Subjective Patient reports: No new complaints, Other Review of Systems: Deferred Objective vital signs Vital Sign Date Time Temp Pulse Resp B/P (MAP) Pulse Ox O2 Delivery O2 Flow Rate FiO2 04/24/24 12:38 133 102/66 04/24/24 12:32 97.9 18 100 97.9 04/24/24 07:32 Room Air* 0 21 Total Intake and Output 04/23/24 04/23/24 04/24/24 15:00 23:00 07:00 Intake Total 1050 ml 1480 ml 380 ml Output Total 700 ml 1350 ml Balance 1050 ml 780 ml -970 ml medications Current Medications Medications Dose Ordered Sig/Edmundo Route Start Time Stop Time Status Last Admin Dose Admin Nitroglycerin 0.4 mg Q5MINP PRN SL 04/17/24 23:15 Morphine Sulfate 2 mg Q30M PRN IV 04/17/24 23:15 Nifedipine 30 mg DAILY PO 04/18/24 10:00 04/24/24 09:00 30 MG Tacrolimus 5 mg BID PO 04/18/24 10:00 04/24/24 08:59 5 MG Prednisone 5 mg DAILY PO 04/18/24 10:00 04/24/24 08:59 5 MG Atorvastatin Calcium 20 mg HS PO 04/18/24 22:00 04/23/24 22:20 20 MG Ondansetron HCl 4 mg Q4HP PRN IV 04/17/24 23:15 04/22/24 09:26 4 MG Acetaminophen 650 mg Q6HP PRN PO 04/17/24 23:15 Hold Enoxaparin Sodium 80 mg DAILY SC 04/19/24 10:00 04/24/24 08:59 80 MG Trazodone HCl 50 mg HS PO 04/19/24 22:00 04/23/24 22:20 50 MG Sodium Chloride 1,000 ml @ 125 mls/hr Q8H IV 04/19/24 13:00 04/24/24 14:11 125 MLS/HR Ceftriaxone Sodium 50 ml @ 100 mls/hr DAILY@09 IV 04/20/24 09:00 04/24/24 08:59 100 MLS/HR Morphine Sulfate 1 mg Q4HP PRN IV 04/20/24 10:00 04/20/24 16:53 1 MG Metoprolol Tartrate 50 mg BID PO 04/23/24 10:00 04/24/24 09:00 50 MG laboratory and microbiology Laboratory Tests 04/24/24 06:13 Test 04/24/24 06:13 Range/Units Serum Glucose 82 74-106 mg/dL Microbiology Date/Time Source Procedure Growth Status 04/17/24 23:31 Blood Blood Culture - Final NO GROWTH AFTER 5 DAYS OF INCUBATION. 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
[2024-04-24] MEDS ORDERED: predniSONE 5 MG TAB PO ONE (16:45)
--- NOTE | 2024-04-24 17:01 | DVHDSRES ---
Discharge Summary Date of Admission Resident Creating Document: ANUM CARABALLO RESIDENT Apr 17, 2024 at 23:06 Date of Discharge: Apr 24, 2024 Admitting Diagnosis acute metabolic or toxic encephalopathy Labs/Diagnostic Data: Laboratory Results Test 04/24/24 06:13 04/22/24 04:58 04/21/24 06:49 04/18/24 23:34 White Blood Count 8.7 10^3/uL (4.4-10.8) Red Blood Count 3.39 10^6/uL (4.0-5.20) Hemoglobin 9.0 g/dL (12.2-16.2) Hematocrit 28.2 % (36.0-46.0) Mean Corpuscular Volume 83.1 fL (80.0-100.0) Mean Corpuscular Hemoglobin 26.6 pg (28.0-32.0) Mean Corpuscular Hemoglobin Concent 32.0 g/dL (32.0-36.0) Red Cell Distribution Width 19.5 % (11.8-14.3) Platelet Count 168 10^3/uL (140-450) Mean Platelet Volume 7.8 fL (6.9-10.8) Neutrophils (%) (Auto) 83.8 % (37.0-80.0) Lymphocytes (%) (Auto) 9.5 % (10.0-50.0) Monocytes (%) (Auto) 5.9 % (0.0-12.0) Eosinophils (%) (Auto) 0.7 % (0.0-7.0) Basophils (%) (Auto) 0.1 % (0.0-2.0) Neutrophils # (Auto) 7.3 10 ^3/uL (1.6-8.6) Lymphocytes # (Auto) 0.8 10 ^3/uL (0.4-5.4) Monocytes # (Auto) 0.5 10 ^3/uL (0-1.3) Eosinophils # (Auto) 0.1 10 ^3/uL (0-0.8) Basophils # (Auto) 0 10 ^3/uL (0-0.2) Nucleated Red Blood Cells 0.1 % Sodium Level 139 mmol/L (136-145) Potassium Level 3.9 mmol/L (3.5-5.1) Chloride Level 110 mmol/L (98-107) Carbon Dioxide Level 19 mmol/L (20-31) Anion Gap 10 (5-15) Blood Urea Nitrogen 17 mg/dL (9-23) Creatinine 2.10 mg/dL (0.550-1.02) Glomerular Filtration Rate Calc 25 mL/min (>90) BUN/Creatinine Ratio 8.1 (10.0-20.0) Serum Glucose 82 mg/dL (74-106) Calcium Level 10.7 mg/dL (8.7-10.4) Total Bilirubin 0.5 mg/dL (0.2-1.0) Aspartate Amino Transferase (AST) 20 U/L (13-40) Alanine Aminotransferase (ALT) < 9 U/L (7-40) Alkaline Phosphatase 130 U/L (46-116) Total Protein 5.5 g/dL (5.7-8.2) Albumin 3.2 g/dL (3.2-4.8) Magnesium Level 1.9 mg/dL (1.6-2.6) Prothrombin Time 11.8 sec (9.3-11.8) Prothrombin Time INR 1.12 (0.9-1.15) Activated Partial Thromboplast Time 30.5 SEC (24.5-34.5) Phosphorus Level 3.1 mg/dL (2.4-5.1) Urine Osmolality 434 mOsm/kg Urine Creatinine 128.15 mg/dL (30.0-125.0) Urine Protein/Creatinine Ratio 0.70 Urine Sodium 60 mmol/L (40-220) Urine Potassium 36 mmol/L (12-62) Urine Total Protein 89.3 mg/dL (1-14) Urine Opiates Screen Pos (NEGATIVE) Urine Fentanyl Screen Pos (NEGATIVE) Urine Barbiturates Screen Neg (NEGATIVE) Urine Phencyclidine Screen Neg (NEGATIVE) Urine Amphetamines Screen Neg (NEGATIVE) Urine Benzodiazepines Screen Neg (NEGATIVE) Urine Cocaine Screen Neg (NEGATIVE) Urine Cannabinoids Screen Neg (NEGATIVE) Test 04/18/24 10:27 04/18/24 05:10 04/18/24 00:35 04/17/24 23:31 CA 27.29 13.5 U/mL (0.0-38.6) Vitamin B12 Level 1078 pg/mL (211-911) Vitamin D 25-Hydroxy 49.9 ng/mL (30.0-100) Hemoglobin A1c 5.6 % A1C (<5.7) Troponin I High Sensitivity 14 ng/L (</=34) Urine Color Yellow (Yellow) Urine Clarity Clear (Clear) Urine pH 5.0 (5.0-9.0) Urine Specific [place] 1.015 (1.001-1.035) Urine Protein Trace (Negative) Urine Ketones Negative (Negative) Urine Blood Negative /uL (Negative) Urine Nitrite Negative (Negative) Urine Bilirubin Negative (Negative) Urine Urobilinogen Normal mg/dL (Negative) Urine Leukocyte Esterase Negative /uL (Negative) Urine RBC <1 /hpf (0 - 4) Urine WBC 1 /hpf (0 - 5) Urine Squamous Epithelial Cells Few /hpf (<5) Urine Bacteria Few /hpf (None Seen) Urine Glucose Normal mg/dL (Normal) Creatine Kinase 22 U/L (34-145) Tacrolimus (LC/MS/MS) 5.1 ng/mL (.) Test 04/17/24 19:15 Lactic Acid Level 1.2 mmol/L (0.4-2.0) Ammonia < 10 umol/L (11-32) B-Type Natriuretic Peptide 514.86 pg/mL (0-100) Thyroid Stimulating Hormone (TSH) 2.58 uIU/mL (0.55-4.78) Other Laboratory Tests 04/24/24 06:13 Brief Hx & Hospital Course: NÉSTOR DAVENPORT is a 74-year-old female with a PMH of HTN, HLD, AFib, breast cancer status post resection, bone cancer, renal and liver transplant presented to the ED accompanied by niece with the chief complaints of generalized weakness, confused and dehydration for past couple of weeks. currently her niece is taking care of her, she mentioned, patient diagnosed with the breast cancer last year, resected right total mastectomy, not aware what type of cancer she had And the January she was diagnosed with bone cancer, and she is on hospice due to insurance issues but no she went to get treated for the cancer, revoked the hospice. For past couple of weeks patient has been dehydrated, weakness, spine, right leg pain and weakness, tremors, lethargy along with continuous nauseous which prompted her to visit ED. on my assessment she denies fever, chest pain, diarrhea, diaphoresis, abdominal pain and other acute associated symptoms. Patient is bed-bound since January. Patient required hospital admission for further evaluation and management. CT of the brain without contrast showed chronic changes with encephalomalacia . Patient and family members initially wants to revocate hospice and to get aggressive treatment for cancer. ,CT thoracic spine and lumbar spine showed lytic appearing lesions in T4,T5, T8, T9 and T10 , L4 vertebral bodies. Bony metastatic disease not excluded. Chronic nondisplaced fracture deformity of right posterior T11 vertebral body, lytic lesion. Dr Rosenberg evaluated the patient, advised to order bone scan, CT chest abdomen pelvis and brain MRI without contrast along with CA 27.29. CT chest abdomen pelvis showed multiple lytic osseous lesions throughout the thoracolumbar spine, pelvis and in the bilateral ribs. There is asymmetric compression deformity along the left side of the L4 vertebral body compatible with a pathologic fracture. There are other areas of cortical disruption, notably in the pelvis and patchy subsolid and ground-glass opacities in the right lung, the largest in the posterior right lower lobe measuring 1.6 cm, And the advised outpatient follow up After all the investigations patient's family decided to go back on home hospice. Due to right lower extremity pain we ordered DVT scan which showed Occlusive thrombus seen in the right superficial femoral and posterior tibial veins, given Lovenox. Due to AFib with RVR patient was continuously monitored on telemetry unit. Complete echocardiogram showed LVEF 55%, RVSP 33 mmHg, scleral calcification and aortic valve. due to acute renal failure, kidney ultrasound to ordered which showed right renal pelviectasis and nonspecific cortical thinning left kidney, Nephrology field sales consultant evaluated the patient, advised is to continue IVF and strict I and Os, to continue prednisolone and tacrolimus. At this point after discussion goals of care patient family decided to go back home hospice. Patient has poor prognosis. Patient is today discharging to home with hospice. General Appearance: mildly confused but, Oriented X2, Cooperative, HEENT: Atraumatic, Mucous membranes dry Respiratory: Clear to auscultation, Normal air movement, No added sounds Cardiovascular: Regular rate, Normal S1, Normal S2, No murmurs Abdominal: Active bowel sounds, Soft, no distention, no tenderness Extremities: right lower extremity tenderness but no edema Skin: No Significant rash, except past surgical scars Neuro: limited exam due to patient status Normal speech, sensorimotor deficits none Psych/Mental Status: Mental status NL, Mood NL Nurse was there as sharperone during examination Operations or Procedures ECHO Conclusion Moderately concentric left ventricular hypertrophy. Patient in a fast rhythm, thus left ventricular systolic function could not be assessed accurately. Grossly normal left ventricular systolic function at 55%. Normal right ventricular systolic function. Slightly increased right ventricular systolic [id number] mm of mercury. Moderately dilated right and atria. The aortic valve is mildly thickened and sclerotic. Normal mitral valve structure and function. Moderately severe tricuspid valve regurgitation. The pulmonary valve is grossly normal. No pericardial effusion. CT CHEST, ABDOMEN AND PELVIS WITHOUT CONTRAST IMPRESSION: 1. There are multiple lytic osseous lesions throughout the thoracolumbar spine, pelvis and in the bilateral ribs. There is asymmetric compression deformity along the left side of the L4 vertebral body compatible with a pathologic fracture. There are other areas of cortical disruption, notably in the pelvis. 2. Patchy subsolid and ground-glass opacities in the right lung, the largest in the posterior right lower lobe measuring 1.6 cm. The etiology is nonspecific. Differential diagnosis includes infectious/ inflammatory changes. Metastatic disease is not entirely excluded. 3. There are no pathologic lymphadenopathy in the chest, abdomen and pelvis. 4. Nonspecific thickening and calcifications in the right adrenal gland. 5. Cholecystectomy with likely postsurgical dilated common bile duct. 6. Small atrophic [place] kidneys with multiple cysts. Transplant kidney in the right lower abdomen grossly appears within normal limits. 7. Fibroid uterus. Thoracolumbar CT IMPRESSION: 1. No CT evidence of acute fracture or traumatic mal-alignment of the bony thoracic spine. 2. Lytic appearing lesions are seen within the T4, T5, T8, T9, and T10 vertebral bodies. Bony metastatic disease not excluded. Recommend thoracic spine MRI for further characterization. 3. Probable chronic nondisplaced fracture deformity of the right posterior T11 vertebral body. IMPRESSION: 1. Lytic lesion is seen in the L4 vertebral body where there is also a probable chronic fracture deformity. Recommend lumbar spine MRI for further characterization. 2. Prominent disc osteophyte complex at L3-L4 causing at least moderate central canal stenosis and at least mild bilateral neural foraminal narrowing. MRI BRAIN HEAD WO CONTRAST IMPRESSION: 1. 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 No definite evidence of metastatic disease although evaluation is limited without intravenous contrast. No evidence of acute ischemia. Bilateral mastoiditis. BILATERAL LOWER EXTREMITY VENOUS DOPPLER IMPRESSION: 1. Occlusive thrombus seen in the right superficial femoral and posterior tibial veins. 2. There is no sonographic evidence for DVT in the left lower extremity. CT head without contrast IMPRESSION: 1. No acute intracranial abnormality. 2. Generalized cerebral volume loss and mild chronic microvascular ischemic change. 3. Moderate encephalomalacia in the left MCA territory involving the left frontal, parietal, and superior temporal lobes RENAL ULTRASOUND IMPRESSION: 1. Mild right renal pelviectasis. There is no obvious nephrolithiasis. 2. Nonspecific cortical thinning in the left kidney. 3. Poorly filled bladder demonstrates a 9 mm echogenic nodular structure. This may represent a bladder calculus or small bladder lesion. Correlation with cystoscopy is recommended. NM BONE WHOLE BODY IMPRESSION: 1. 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 2. Uptake in the thoracolumbar spine, right knee, and bilateral feet is nonspecific and may reflect degenerative changes, trauma, or metastatic disease. Condition at Discharge: Guarded Final Diagnosis/Problems List # acute metabolic or toxic encephalopathy Likely due dehydration # dehydration # Ruled out acute CVA # acute renal failure likely due to VMN vs CKD # History of kidney and liver transplant in 2016 and takes calcitriol, tacrolimus and prednisone # History of left modified radical mastectomy in 2022 at [place] without any adjuvant treatment # lytic bony lesions appearing lesions in T4,T5, T8, T9 and T10 , L4 likely secondary to metastasis # ?lung mass likely secondary to metastasis # Hypertension # Atrial fibrillation with RVR secondary hypercoagulable state # ? Acute on chronic diastolic CHF # Right lower extremity DVT # Hyperlipidemia Discharge Disposition: Hospice - Home Discharge Instruct/Medications Diet: Consistent carbohydrate, Cardiac 2g Na,low cholest Activity: No Restrictions, As Tolerated Follow Up/Referral: Dr Rosenberg on outpatient Medications: per EMR Discharge Statement: "Patient was advised to return to the ER or call 911 if any headaches, dizziness, shortness of breath, chest pain, abdominal pain, bleeding, fevers, or worsening of medical condition. Patient was counseled about treatment plan, medications, possible side effects, patientverbalized understanding. All questions were answered to the best of my ability. This discharge took greater then 30 minutes in planning, reviewing documentation, counseling the patient, and discussing with other team members." ASSESSMENT ASSESSMENT Assessment # acute metabolic or toxic encephalopathy # dehydration # acute renal failure likely due to VMN vs CKD Date of Service: Apr 24, 2024 Billing Provider: RENEE STOKES MD Common Visit Codes: 02013-MBB/OBS DISCH DAY >30min ANUM CARABALLO RESIDENT Apr 24, 2024 17:01 RENEE STOKES MD Apr 24, 2024 18:03
[2024-04-25] MEDS ORDERED: predniSONE 5 MG TAB PO SCH (10:00)
== END 2024-04-24 20:45 | disposition hospice, home (50) | DRG 698 ==
LOC: EDBD 18:24 → ER 18:24 → TELE 23:06 → TELE-WESTW 04-18 05:48 → WEST WING 04-24 17:44
PROVIDERS: ADMIT Internal Medicine Geriatric Medicine; ATTEND Emergency Medicine
DX: T86.12 Kidney transplant failure (principal); G92.8 Other toxic encephalopathy; N17.0 Acute kidney failure with tubular necrosis; I50.33 Acute on chronic diastolic (congestive) heart failure; I13.0 Hypertensive heart and chronic kidney disease with heart failure and stage 1 through stage 4 chronic kidney disease, or unspecified chronic kidney disease; C79.51 Secondary malignant neoplasm of bone; D61.818 Other pancytopenia; I48.92 Unspecified atrial flutter; Z94.4 Liver transplant status; I82.401 Acute embolism and thrombosis of unspecified deep veins of right lower extremity; I48.21 Permanent atrial fibrillation; D68.59 Other primary thrombophilia; E86.0 Dehydration; E78.5 Hyperlipidemia, unspecified; E66.9 Obesity, unspecified; D25.9 Leiomyoma of uterus, unspecified; E83.52 Hypercalcemia; Y83.0 Surgical operation with transplant of whole organ as the cause of abnormal reaction of the patient, or of later complication, without mention of misadventure at the time of the procedure; N18.9 Chronic kidney disease, unspecified; G93.89 Other specified disorders of brain; I48.91 Unspecified atrial fibrillation; Z74.01 Bed confinement status; Z80.3 Family history of malignant neoplasm of breast; Z87.891 Personal history of nicotine dependence; Z80.1 Family history of malignant neoplasm of trachea, bronchus and lung; Z90.12 Acquired absence of left breast and nipple; Z88.6 Allergy status to analgesic agent; Z88.8 Allergy status to other drugs, medicaments and biological substances; Z79.899 Other long term (current) drug therapy; Z79.01 Long term (current) use of anticoagulants; Z85.3 Personal history of malignant neoplasm of breast; Z92.3 Personal history of irradiation; Y92.89 Other specified places as the place of occurrence of the external cause; Z68.34 Body mass index [BMI] 34.0-34.9, adult
CPT/HCPCS: 36415; 70450; 70551; 71045; 71250; 72128; 72131; 74176; 76775; 78306; 80048; 80053; 80197; 80307; 81001; 82140; 82306; 82550; 82570; 82607; 83036; 83605; 83735; 83880; 83935; 84100; 84133; 84156; 84300; 84443; 84484; 85025; 85610; 85730; 86300; 87040; 93005; 93306; 93970; 97110; 97116; 97163; 97530; G0378; J2405; J7507